=== PATIENT | male | born 1960 | race African-American/Black ===

== ENCOUNTER → 2016-09-08 | Outpatient (CLI) | payer OTHER ==
[2016-06-24 10:58] VITALS: BP 162/82
[~2016-09-08] MED LIST: AMIO200T2 PO; ASPI325T4 PO; BENZ100C2 PO; CARV25TA2 PO; CLOP75TA PO; DRON400T PO; FURO40TA4 PO; HYDR12.58 PO; LISI-338 PO; METH10TA6 PO; NICO1PAT2 TD; PANT40TA5 PO; POTA20TA82 PO; PROP80CA3 PO; RANI150C PO; SACU1TAB7 PO
--- NOTE | 2016-09-08 17:16 | RAD ---
Scrotal ultrasound 09/08/2016 Clinical history: Right scrotal pain and swelling. Technique: Using a combination of real-time ultrasound imaging and color-flow and pulse Doppler imaging techniques, duplex evaluation of the scrotal sac and its contents was performed. Multiple images were obtained. Findings: Comparison study is dated 06/05/2016. The right testicle is within normal limits in size and echogenicity. It measures 4.4 x 3.4 x 1.8 cm in longitudinal, transverse, and AP dimensions. The left testicle is enlarged. It measures 5.7 x 4.7 x 3.3 cm in size. A complex cyst is seen within the superior/mid left testicle which measures 4.0 x 4.1 x 3.3 cm in size. This has increased in size significantly since the previous examination where it measured 5 mm in greatest diameter. Normal color flow Doppler imaging to both testicles is seen. No focal abnormality of either epididymal head is seen. There is a large complex right hydrocele which measures 7.2 cm in greatest diameter. This has increased in size since the previous examination. The large left hydrocele seen on the previous study has resolved. This was reportedly drained surgically. Impression: 1. 4.1 cm complex cyst is seen involving the superior/mid left testicle which have increased in size significantly since the previous examination. Its ultrasound appearance is nonspecific but would be concerning for an abscess given its significantly change in size in 3 months. 2. Large right hydrocele which has increased in size since the previous study.
== END | disposition home or self-care (01) ==
LOC: US 15:11
PROVIDERS: ATTEND Urology
DX: N50.811 Right testicular pain (principal); M79.89 Other specified soft tissue disorders
CPT/HCPCS: 76870

== ENCOUNTER → 2016-12-24 | Outpatient (CLI) | payer OTHER ==
[2016-06-24 10:58] VITALS: BP 162/82
[~2016-12-24] MED LIST changes: -ASPI325T4 PO; +ASPI325T8 PO; +BENZ100C15 PO; -BENZ100C2 PO; +METH-364 PO; -METH10TA6 PO
--- NOTE | 2016-12-24 15:11 | CARD ---
APPROVED REPORT EXAM: Two-dimensional and M-mode echocardiogram with Doppler and color Doppler. Other Information Quality : GoodHR: 59bpm Rhythm : PVC's INDICATION Non ischemic cardiomyopathy 2D DIMENSIONS RVDd3.4 (2.9-3.5cm)Left Atrium(2D)6.0 (1.6-4.0cm) IVSd1.6 (0.7-1.1cm)Aortic Root(2D)3.4 (2.0-3.7cm) LVDd5.6 (3.9-5.9cm)LVOT Diameter2.4 (1.8-2.4cm) PWd1.6 (0.7-1.1cm)LVDs5.3 (2.5-4.0cm) FS (%) 5.0 %SV17.0 ml Aortic Valve AoV Peak Joshua.118.0cm/sAoV VTI25.6cm AO Peak GR.5.6mmHgLVOT Peak Joshua.82.2cm/s AO Mean GR.3mmHgAVA (VMAX)3.25cm2 Mitral Valve MV E Otzjchyt27.0cm/sMV DECEL [id number] MV A Dalqwkpx70.3cm/sE/A Ratio0.7 MV A Nfxbopnv862jm Pulmonary Valve PV Peak Suxwfyty32.0cm/s Tricuspid Valve TR P. Sqkrcxzw028at/sTR Peak Gr.32mmHg Pulmonary Vein S1 Hdhexaup68.1cm/sD2 Tjlsanoa22.3cm/s PVa psafgfqk74dyib LEFT VENTRICLE The Left Ventricle is mild to moderately dilated. There is mild concentric left ventricular hypertrop hy. Left ventricle systolic function is severely impaired. The Ejection Fraction is estimated at 25%. There is severe global hypokinesis of the left ventricle. Transmitral Doppler flow pattern is Grade I-abnormal relaxation pattern. No left ventricle thrombus noted on this study. RIGHT VENTRICLE The right ventricle is normal size. There is normal right ventricular wall thickness. The right ventr icular systolic function is normal. There is a pacemaker/defibrillator lead in the right ventricle. ATRIA The left atrium is moderately dilated. The right atrium size is normal. The interatrial septum is int act with no evidence for an atrial septal defect or patent foramen ovale as noted on 2-D or Doppler i gabrielle. AORTIC VALVE The aortic valve is mildly thickened. The aortic valve is trileaflet. Doppler and Color Flow revealed no significant aortic regurgitation. There is no significant aortic valvular stenosis. MITRAL VALVE The mitral valve leaflets are thickened. There is no evidence of mitral valve prolapse. There is no m itral valve stenosis. Doppler and Color Flow revealed mild mitral regurgitation. TRICUSPID VALVE Doppler and Color Flow revealed mild tricuspid regurgitation. The pulmonary artery systolic pressure is estimated at 32 mmHg. PULMONIC VALVE Doppler and Color Flow revealed mild pulmonic valvular regurgitation. There is no pulmonic valvular s tenosis. GREAT VESSELS The aortic root is normal in size. The ascending aorta is normal in size. The pulmonary artery is nor mal. The IVC is normal in size and collapses >50% with inspiration. PERICARDIAL EFFUSION There is no evidence of significant pericardial effusion. Critical Notification Critical Value: No <Conclusion> The Left Ventricle is mild to moderately dilated. Left ventricle systolic function is severely impaired. The Ejection Fraction is estimated at 25%. There is mild concentric left ventricular hypertrophy. There is a pacemaker/defibrillator lead in the right ventricle. There is no significant aortic valvular stenosis. Doppler and Color Flow revealed no significant aortic regurgitation. Doppler and Color Flow revealed mild mitral regurgitation. Doppler and Color Flow revealed mild tricuspid regurgitation. The pulmonary artery systolic pressure is estimated at 32 mmHg.
== END | disposition home or self-care (01) ==
LOC: ECHO 10:59
PROVIDERS: ATTEND Internal Medicine Cardiovascular Disease
DX: I42.9 Cardiomyopathy, unspecified (principal); I08.1 Rheumatic disorders of both mitral and tricuspid valves
CPT/HCPCS: 93306

== ENCOUNTER 2018-03-02 10:00 | Inpatient (IN) | payer OTHER ==
[~2018-03-02] VITALS: Ht 182.9 cm; Wt 104.0 kg
[~2018-03-02 10:00] MED LIST changes: -AMIO200T2 PO; +AMIO200T4 PO; +BENZ-8 PO; -BENZ100C15 PO
[2018-03-02 10:57] LABS: BASO % 1 % (0-3); EOS % 0 % (0-3); HEMATOCRIT 40.8 % (39.0-53.0); HEMOGLOBIN 13.4 g/dL (13.0-17.5); LYMPH # 1.3 x10^3/uL (1.0-4.8); LYMPH % 24 % (24-48); MEAN CORPUSCULAR HEMOGLOBIN 26 pg (25-35); MEAN CORPUSCULAR HGB CONC 33 g/dL (31-37); MEAN CORPUSCULAR VOLUME 79 fL (79-100); MONO # 0.5 x10^3/uL (0.0-1.1); MONO % 9 % (0-9); NEUT # 3.6 x10^3uL (1.8-7.7); NEUT % 67 % (31-73); PLATELET COUNT 193 x10^3/uL (140-400); RED CELL DISTRIBUTION WIDTH 17.1 % (11.5-14.5); WHITE BLOOD COUNT 5.4 x10^3/uL (4.0-11.0)
[2018-03-02 11:11] LABS: CALCIUM 8.5 mg/dL (8.5-10.1); CREATININE 1.2 mg/dL (0.7-1.3); POTASSIUM 3.8 mmol/L (3.5-5.1)
--- NOTE | 2018-03-02 11:11 | PHYS DOC ---
Past Medical History Past Medical History: CAD, CHF, CVA, GERD, Other Additional Past Medical Histor: PACEMAKER Past Surgical History: Hip Replacement, Pacemaker Additional Past Surgical Histo: FEEDING TUBE, Additional Information: 1/2 PACK DAILY Alcohol Use: Occasionally Drug Use: None Adult General Chief Complaint Chief Complaint: FATIGUE HPI HPI Patient is a 57-year-old male who presents to the emergency department for evaluation. He states that he has been having increasing episodes of dizziness on and off for the past month, and has also had some increasing dyspnea on exertion. He denies having any pain, including any chest pain. He does have a history of coronary artery disease, with congestive heart failure, and pacemaker /AICD. He called his extractor operator solvent process's office and was put on Lasix yesterday, but he did not get any better. He went see his primary care provider today, referred him to the emergency department. Exertion seems to worsen his shortness of breath. There are no alleviating factors to his symptoms. Soon after arrival in the emergency department, the patient did have a run on the hall monitor what appeared to be V. tach, although there are questionable pacemaker spikes preceding these tachycardic beats. The patient's pacemaker is made by [email or web address], and an interrogation has been requested. Review of Systems Review of Systems Constitutional: Denies fever or chills. The patient has reported the 12th, weight gain. [] Eyes: Denies change in visual acuity, redness, or eye pain [] HENT: Denies nasal congestion or sore throat [] Respiratory: Denies cough or shortness of breath at rest. Does report some orthopnea. [] Cardiovascular: The patient denies any chest pain, palpitations [] GI: Denies abdominal pain, nausea, vomiting, bloody stools or diarrhea [] : Denies dysuria or hematuria [] Musculoskeletal: Denies back pain or joint pain [] Integument: Denies rash or skin lesions [] Neurologic: Denies headache, focal weakness or sensory changes [] Endocrine: Denies polyuria or polydipsia [] All other systems were reviewed and found to be within normal limits, except as documented in this note. Allergies Allergies Allergies Coded Allergies Type Severity Reaction Last Updated Verified No Known Drug Allergies 06/24/16 No Physical Exam Physical Exam Constitutional: Well developed, well nourished, no acute distress, non-toxic appearance. [] HENT: Normocephalic, atraumatic, bilateral external ears normal, oropharynx moist, no oral exudates, nose normal. [] Eyes: PERRLA, EOMI, conjunctiva normal, no discharge. [] Neck: Normal range of motion, no tenderness, supple, no stridor. [] Cardiovascular:Heart rate regular rhythm, no murmur [] Lungs & Thorax: Bilateral breath sounds clear to auscultation [] Abdomen: Bowel sounds normal, soft, no tenderness, no masses, no pulsatile masses. [] Skin: Warm, dry, no erythema, no rash. [] Back: No tenderness, no CVA tenderness. [] Extremities: No tenderness, no cyanosis, no clubbing, ROM intact, no edema. [] Neurologic: Alert and oriented X 3, normal motor function, normal sensory function, no focal deficits noted. [] Psychologic: Affect normal, judgement normal, mood normal. [] Current Patient Data Vital Signs Vital Signs Date Time Temp Pulse Resp B/P (MAP) Pulse Ox O2 Delivery O2 Flow Rate FiO2 03/02/18 11:10 76 20 150/98 (115) 96 Room Air 03/02/18 10:08 98.5 98.5 Lab Values Laboratory Tests Test 03/02/18 10:32 03/02/18 11:00 White Blood Count 5.4 x10^3/uL (4.0-11.0) Red Blood Count 5.20 x10^6/uL (4.30-5.70) Hemoglobin 13.4 g/dL (13.0-17.5) Hematocrit 40.8 % (39.0-53.0) Mean Corpuscular Volume 79 fL (79-100) Mean Corpuscular Hemoglobin 26 pg (25-35) Mean Corpuscular Hemoglobin Concent 33 g/dL (31-37) Red Cell Distribution Width 17.1 % (11.5-14.5) H Platelet Count 193 x10^3/uL (140-400) Neutrophils (%) (Auto) 67 % (31-73) Lymphocytes (%) (Auto) 24 % (24-48) Monocytes (%) (Auto) 9 % (0-9) Eosinophils (%) (Auto) 0 % (0-3) Basophils (%) (Auto) 1 % (0-3) Neutrophils # (Auto) 3.6 x10^3uL (1.8-7.7) Lymphocytes # (Auto) 1.3 x10^3/uL (1.0-4.8) Monocytes # (Auto) 0.5 x10^3/uL (0.0-1.1) Eosinophils # (Auto) 0.0 x10^3/uL (0.0-0.7) Basophils # (Auto) 0.0 x10^3/uL (0.0-0.2) Prothrombin Time 13.7 SEC (11.7-14.0) Prothrombin Time INR 1.1 (0.8-1.1) D-Dimer (Anai) 0.51 ug/mlFEU (0.00-0.50) H Sodium Level 138 mmol/L (136-145) Potassium Level 3.8 mmol/L (3.5-5.1) Chloride Level 105 mmol/L (98-107) Carbon Dioxide Level 26 mmol/L (21-32) Anion Gap 7 (6-14) Blood Urea Nitrogen 9 mg/dL (8-26) Creatinine 1.2 mg/dL (0.7-1.3) Estimated GFR (Cockcroft-Gault) 75.0 BUN/Creatinine Ratio 8 (6-20) Glucose Level 99 mg/dL (70-99) Calcium Level 8.5 mg/dL (8.5-10.1) Magnesium Level 2.0 mg/dL (1.8-2.4) Total Bilirubin 0.6 mg/dL (0.2-1.0) Aspartate Amino Transferase (AST) 33 U/L (15-37) Alanine Aminotransferase (ALT) 76 U/L (16-63) H Alkaline Phosphatase 99 U/L (46-116) Creatine Kinase 80 U/L (39-308) Creatine Kinase MB (Mass) 0.8 ng/mL (0.0-3.6) Creatine Kinase MB Relative Index 1.0 % (0-4) Troponin I Quantitative 0.038 ng/mL (0.000-0.055) IR-Tcq-A-Type Natriuretic Peptide 2307 pg/mL (0-124) H Total Protein 6.9 g/dL (6.4-8.2) Albumin 3.3 g/dL (3.4-5.0) L Albumin/Globulin Ratio 0.9 (1.0-1.7) L Triglycerides Level 64 mg/dL (0-150) Cholesterol Level 163 mg/dL (0-200) LDL Cholesterol, Calculated 83 mg/dL (0-100) VLDL Cholesterol, Calculated 13 mg/dL (0-40) Non-HDL Cholesterol Calculated 96 mg/dL (0-129) HDL Cholesterol 67 mg/dL (40-60) H Cholesterol/HDL Ratio 2.4 Urine Collection Type Void Urine Color Yellow Urine Clarity Clear Urine pH 7.0 Urine Specific [place] 1.010 Urine Protein Negative mg/dL (NEG-TRACE) Urine Glucose (UA) Negative mg/dL (NEG) Urine Ketones (Stick) Negative mg/dL (NEG) Urine Blood Negative (NEG) Urine Nitrite Negative (NEG) Urine Bilirubin Negative (NEG) Urine Urobilinogen Dipstick 0.2 mg/dL (0.2 mg/dL) Urine Leukocyte Esterase Negative (NEG) Urine RBC 1-2 /HPF (0-2) Urine WBC Occ /HPF (0-4) Urine Squamous Epithelial Cells Occ /LPF Urine Bacteria 0 /HPF (0-FEW) Laboratory Tests 03/02/18 10:32 Laboratory Tests 03/02/18 10:32 EKG EKG [Normal sinus rhythm at a rate of 75 bpm with occasional APCs. Normal axis, right bundle-branch block, without acute ischemic ST/T changes. The patient's right bundle-branch block is new from his most recent EKG from 2016.] Radiology/Procedures Radiology/Procedures [ER physician preliminary review of the patient's outpatient chest x-ray, which has been uploaded to PACS: Cardiomegaly with mild vascular congestion], With some right perihilar prominence. Course & Med Decision Making Course & Med Decision Making Pertinent Labs and Imaging studies reviewed. (See chart for details) [The patient's pacemaker was interrogated. Today's episode appears to have been an episode of pacemaker mediated tachycardia, possibly triggered by a PVC. However, the patient did have an episode on 02/18 of fast ventricular tachycardia lasting a few seconds, his pacemaker was getting ready to shock him , when the patient spontaneously converted in the shock was aborted. The patient also had initial tachycardia dysrhythmia on 02/19.] The patient's condition remained stable at this time. Did discuss the case with the hospitalist will admit the patient for further evaluation, the patient's extractor operator solvent process has been contacted as well. 12:30 PM: The patient's d-dimer is noted to be only slightly elevated. Given the data available at this time I do not believe the patient has a pulmonary embolus and. I discussed the slightly elevated d-dimer but with the patient and the hospitalist expectant management will be undertaken, I do not believe the patient warrants emergent CT imaging at this time. But the patient and hospitalist agreed. Dragon Disclaimer Dragon Disclaimer This electronic medical record was generated, in whole or in part, using a voice recognition dictation system. Departure Departure Impression: Primary Impression: Dyspnea Additional Impressions: Congestive heart failure Arrhythmia Disposition: 09 ADMITTED INPATIENT Admitting Physician: Janeen Pollock Condition: STABLE Referrals: JAN DONOHUE DO (PCP) Problem Qualifiers NANCI OLIVER MD Mar 02, 2018 11:11
[2018-03-02 11:13] LABS: BILIRUBIN,URINE NEGATIVE (NEG); CLARITY,URINE CLEAR; COLOR,URINE YELLOW; NITRITE,URINE NEGATIVE (NEG); PROTEIN,URINE NEGATIVE (NEG-TRACE); UROBILINOGEN,URINE 0.2 mg/dL (0.2 mg/dL)
[2018-03-02 11:13] LABS: ALBUMIN 3.3 g/dL (3.4-5.0); ALBUMIN/GLOBULIN RATIO 0.9 (1.0-1.7); TOTAL BILIRUBIN 0.6 mg/dL (0.2-1.0); TOTAL PROTEIN 6.9 g/dL (6.4-8.2)
[2018-03-02 11:40] LABS: BACTERIA,URINE 0 /HPF (0-FEW); SQUAMOUS EPITHELIAL CELL,UR OCC /LPF; WBC,URINE OCC /HPF (0-4)
[2018-03-02 11:46] LABS: PROTHROMBIN TIME PATIENT 13.7 SEC (11.7-14.0)
--- NOTE | 2018-03-02 12:03 | PDOC2 ---
JANA MILLER INDUSTRIAL HYGIENIST 03/02/18 1203: CARDIAC CONSULT DATE OF CONSULT Date of Consult DATE: 03/02/18 TIME: 11:50 REASON FOR CONSULT Reason for Consult: CHF REFERRING PHYSICIAN Referring Physician: Calin SOURCE Source: Chart review, Patient HISTORY OF PRESENT ILLNESS HISTORY OF PRESENT ILLNESS This is a pleasant 57 yo male admitted for complains of SOA and leg edema and fatigue. 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 He has been having some occasional SOA but this became more pronounced in the last 2 weeks. He has been sleeping in the living room sitting up away from his PANEL BUILDER-D transmitter so it has not download the data for that long. Positive for orthopnea, PND, some wheeze with nonproductive cough. Denies any CP or feeling of palpitations. He has been taking his medications regularly and yesterday he just got started back on lasix 20 mg which he has not taken in a while. Positive for increasing leg edema. No n/v nor diarrhea, no fever or chills. PAST MEDICAL HISTORY Past Medical History Cardiovascular: CHF (nonischemic cardiomyopathy; cardiac arrest with V fib ), HTN, PAFIB Pulmonary: RAKESH CENTRAL NERVOUS SYSTEM: CVA GI: GERD Heme/Onc: No pertinent hx Hepatobiliary: No pertinent hx Psych: Anxiety Musculoskeletal: Osteoarthritis Rheumatologic: No pertinent hx Infectious disease: No pertinent hx ENT: No pertinent hx Renal/: hydrocele Endocrine: hyperthyroidism PAST SURGICAL HISTORY Past Surgical History Biotronik AICD implantation; heart valve surgery as a child; RV lead revision from microdislodgement of RV lead of ICD; feeding tube placement, left hydrocelectomy, hip replacement FAMILY HISTORY Family History noncontributory SOCIAL HISTORY Smoke: Quit ALCOHOL: none Drugs: None ALLERGIES ALLERGIES: Coded Allergies: No Known Drug Allergies (Unverified , 06/24/16) ROS Review of System 14 point ROS evaluated with pertinent positives noted via HPI PHYSICAL EXAM General: Alert, Oriented X3, Cooperative, No acute distress HEENT: Mucous membr. moist/pink Lungs: Other (basilar crackles) Heart: Other (2/6 systolic murmur to LLS border) Abdomen: Soft, No tenderness Extremities: No cyanosis, Other (2-3+ bilateral LE pitting edema) Skin: No breakdown, No significant lesion Neuro: Normal speech, Sensation intact Psych/Mental Status: Mental status NL, Mood NL MUSCULOSKELETAL: Osteoarthritic changes both hands VITALS VITALS Vital Signs Date Time Temp Pulse Resp B/P (MAP) Pulse Ox O2 Delivery O2 Flow Rate FiO2 03/02/18 11:10 76 20 150/98 (115) 96 Room Air 03/02/18 10:08 98.5 98.5 LABS Lab: Laboratory Tests Test 03/02/18 10:32 03/02/18 11:00 White Blood Count 5.4 x10^3/uL (4.0-11.0) Red Blood Count 5.20 x10^6/uL (4.30-5.70) Hemoglobin 13.4 g/dL (13.0-17.5) Hematocrit 40.8 % (39.0-53.0) Mean Corpuscular Volume 79 fL (79-100) Mean Corpuscular Hemoglobin 26 pg (25-35) Mean Corpuscular Hemoglobin Concent 33 g/dL (31-37) Red Cell Distribution Width 17.1 % (11.5-14.5) Platelet Count 193 x10^3/uL (140-400) Neutrophils (%) (Auto) 67 % (31-73) Lymphocytes (%) (Auto) 24 % (24-48) Monocytes (%) (Auto) 9 % (0-9) Eosinophils (%) (Auto) 0 % (0-3) Basophils (%) (Auto) 1 % (0-3) Neutrophils # (Auto) 3.6 x10^3uL (1.8-7.7) Lymphocytes # (Auto) 1.3 x10^3/uL (1.0-4.8) Monocytes # (Auto) 0.5 x10^3/uL (0.0-1.1) Eosinophils # (Auto) 0.0 x10^3/uL (0.0-0.7) Basophils # (Auto) 0.0 x10^3/uL (0.0-0.2) Prothrombin Time 13.7 SEC (11.7-14.0) Prothromb Time International Ratio 1.1 (0.8-1.1) D-Dimer (Anai) ug/mlFEU (0.00-0.50) Sodium Level 138 mmol/L (136-145) Potassium Level 3.8 mmol/L (3.5-5.1) Chloride Level 105 mmol/L (98-107) Carbon Dioxide Level 26 mmol/L (21-32) Anion Gap 7 (6-14) Blood Urea Nitrogen 9 mg/dL (8-26) Creatinine 1.2 mg/dL (0.7-1.3) Estimated GFR (Cockcroft-Gault) 75.0 BUN/Creatinine Ratio 8 (6-20) Glucose Level 99 mg/dL (70-99) Calcium Level 8.5 mg/dL (8.5-10.1) Magnesium Level 2.0 mg/dL (1.8-2.4) Total Bilirubin 0.6 mg/dL (0.2-1.0) Aspartate Amino Transf (AST/SGOT) 33 U/L (15-37) Alanine Aminotransferase (ALT/SGPT) 76 U/L (16-63) Alkaline Phosphatase 99 U/L (46-116) Creatine Kinase 80 U/L (39-308) Creatine Kinase MB (Mass) 0.8 ng/mL (0.0-3.6) Creatine Kinase MB Relative Index 1.0 % (0-4) Troponin I Quantitative 0.038 ng/mL (0.000-0.055) PP-Kcw-Q-Type Natriuretic Peptide 2307 pg/mL (0-124) Total Protein 6.9 g/dL (6.4-8.2) Albumin 3.3 g/dL (3.4-5.0) Albumin/Globulin Ratio 0.9 (1.0-1.7) Urine Collection Type Void Urine Color Yellow Urine Clarity Clear Urine pH 7.0 Urine Specific [place] 1.010 Urine Protein Negative mg/dL (NEG-TRACE) Urine Glucose (UA) Negative mg/dL (NEG) Urine Ketones (Stick) Negative mg/dL (NEG) Urine Blood Negative (NEG) Urine Nitrite Negative (NEG) Urine Bilirubin Negative (NEG) Urine Urobilinogen Dipstick 0.2 mg/dL (0.2 mg/dL) Urine Leukocyte Esterase Negative (NEG) Urine RBC 1-2 /HPF (0-2) Urine WBC Occ /HPF (0-4) Urine Squamous Epithelial Cells Occ /LPF Urine Bacteria 0 /HPF (0-FEW) ECHOCARDIOGRAM ECHOCARDIOGRAM <Conclusion> The Left Ventricle is mild to moderately dilated. Left ventricle systolic function is severely impaired. The Ejection Fraction is estimated at 25%. There is mild concentric left ventricular hypertrophy. There is a pacemaker/defibrillator lead in the right ventricle. There is no significant aortic valvular stenosis. Doppler and Color Flow revealed no significant aortic regurgitation. Doppler and Color Flow revealed mild mitral regurgitation. Doppler and Color Flow revealed mild tricuspid regurgitation. The pulmonary artery systolic pressure is estimated at 32 mmHg. DATE: 12/24/16 1510 ASSESSMENT/PLAN ASSESSMENT/PLAN 1. Acute on chronic systolic CHF: noted with est.13 pound wt gain. 2. Hx of Vfib: possible aborted V fib episode over a week ago, awaiting full interrogation report 3. NICM: last [facility] 2008 4. 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 failed download for about 2 weeks as he has been sleeping away from transmitter. 5. HTN: controlled 6. PAFIB: on multaq. Likely not a candidate for amiodarone due to hx of hyperthyroidism 7. HLP: on lipitor 8. Hx of hyperthyroidism: likely primary. Was on propranolol and tapazole in the past which he has not on anymore. 9. HX of TIA: on plavix Recommendations 1. Lasix therapy. DC HCTZ. 2. Continue entresto, lipitor. Start on ASA. 3. TSH, lipids, Mg, and TTE and CXR 4. Will interrogate device and will note final result for possible adjustment on setting.. Will possibly need to stop multaq, will discuss with primary chip bin conveyor tender. 5. Compliant with FR and diet. Encouraged daily wt. 6. Noted with past hx of RAKESH but no documented use of CPAP. May need to revisit. EDWIN HAIRSTON MD 03/02/18 1512: CARDIAC CONSULT ASSESSMENT/PLAN ASSESSMENT/PLAN Patient seen and examined. Agree with NEEDLE GRADER's assessment and plan. Continue diuresis for acute on chronic systolic heart failure We will obtain records from recent AICD interrogation confirm ventricular fibrillation Continue multaq for rhythm maintenance Thank you for your consultation JANA MILLER APRN Mar 02, 2018 12:03 EDWIN HAIRSTON MD Mar 02, 2018 15:12
[2018-03-02 12:10] LABS: D-DIMER 0.51 ug/mlFEU (0.00-0.50)
--- NOTE | 2018-03-02 12:11 | EKG ---
[facility] [address] [place] [address] Test Date: 2018-03-02 Test Time: 10:23:44 Pat Name: FELIPE MESA Department: Room: Gender: M Train Starter: : [id number] Requested By: NANCI OLIVER Order Number: [id number] Reading MD: Peterson Funez MD Measurements Intervals [place] Rate: 75 P: 59 MS: 194 QRS: 38 QRSD: 154 T: 44 QT: 424 QTc: 476 Interpretive Statements SINUS RHYTHM ATRIAL PREMATURE COMPLEX(ES) RIGHT BUNDLE BRANCH BLOCK Electronically Signed On 03-03-2018 12:23:01 CDT by Peterson Funez MD
[2018-03-02 12:29] LABS: CHOLESTEROL/HDL RATIO 2.4
[2018-03-02] MEDS ORDERED: CALCIUM CARBONATE 500 MG TAB.CHEW PO PRN (12:45)
[2018-03-02] MEDS ORDERED: PROCHLORPERAZINE 25 MG SUPP.RECT. PR PRN (12:45)
[2018-03-02] MEDS ORDERED: IBUPROFEN 400 MG TABLET. PO PRN (12:45)
[2018-03-02] MEDS ORDERED: PROCHLORPERAZINE 10 MG/2 ML VIAL. IV PRN (12:45)
[2018-03-02] MEDS ORDERED: MAGNESIUM HYDROXIDE 2,400 MG/30 ML ORAL.SUSP. PO PRN (12:45)
[2018-03-02] MEDS ORDERED: BISACODYL 10 MG SUPP.RECT. PR PRN (12:45)
[2018-03-02] MEDS ORDERED: ZOLPIDEM 5 MG TABLET. PO PRN (12:45)
[2018-03-02] MEDS ORDERED: MORPHINE SULFATE 2 MG/ML VIAL. IV PRN (12:45)
[2018-03-02] MEDS ORDERED: ONDANSETRON PF 4 MG/2 ML VIAL. IV PRN (12:45)
[2018-03-02] MEDS ORDERED: MAG HYDROX/ALUMINUM HYD/SIMETH 30 ML ORAL.SUSP PO PRN (12:45)
[2018-03-02] MEDS ORDERED: oxyCODONE IR 5 MG TABLET PO PRN (12:45)
[2018-03-02] MEDS ORDERED: ACETAMINOPHEN 325 MG TABLET. PO PRN (12:45)
[2018-03-02 13:09] LABS: FREE T4 1.24 ng/dL (0.76-1.46)
--- NOTE | 2018-03-02 13:10 | PDOC1 ---
History and Physical Date of Admission Date of Admission DATE: 03/02/18 TIME: 13:05 Identification/Chief Complaint Chief Complaint AICD firing few days ago, lightheaded, sent by PCP office Source Source: Caregiver, Chart review, Patient History of Present Illness History of Present Illness Very pleasant 57-year-old -Turkish male with indwelling AICD, was sent by PCP office today about also be the AICD firing few days ago, pacer was interrogated and maybe some V. fib by pacer interrogation. Patient did have some lightheadedness and feeling unwell. He does take Synthroid medications and TSH T3-T4 pending. Labs are otherwise looking good. D-dimer mildly elevated but nontoxic appearing and no documented chest pain. HEnce no CTA needed, .Cardiology has seen, plan for an MPI tomorrow. Okay to have a diet today but nothing by mouth post midnight. PCP is from [facility], Dr. Blanca is his aix architect. He does has extensive cardiac history including A. fib, V. tach tachyarrhythmias, indwelling pacer etc. Smokes, less than a pack a day. No alcohol. Seen at ER, appearing well Cardiovascular: CHF (nonischemic cardiomyopathy; cardiac arrest with V fib ), HTN, AFIB Past Medical History Cardiovascular: CAD, CHF, Other Pulmonary: No pertinent hx CENTRAL NERVOUS SYSTEM: Other GI: GERD Heme/Onc: No pertinent hx Hepatobiliary: No pertinent hx Psych: Anxiety Musculoskeletal: Osteoarthritis Rheumatologic: No pertinent hx Infectious disease: No pertinent hx Renal/: No pertinent hx Endocrine: No pertinent hx Past Surgical History Past Surgical History: Cholecystectomy, Other Family History Family History: High Cholestrol, Hypertension Social History Smoke: <1 pack per day ALCOHOL: none Drugs: None Current Problem List Problem List Problems Medical Problems: (1) Arrhythmia Status: Acute (2) Congestive heart failure Status: Acute (3) Dyspnea Status: Acute Current Medications Current Medications Current Medications Ondansetron HCl (Zofran) 4 mg PRN Q6HRS PRN IV NAUSEA/VOMITING; Start 03/02/18 at 12:45 Prochlorperazine Edisylate (Compazine) 10 mg PRN Q6HRS PRN IV NAUSEA/VOMITING 2ND CHOICE; Start 03/02/18 at 12:45 Prochlorperazine (Compazine) 25 mg PRN Q12HR PRN CT NAUSEA/VOMITING; Start at 12:45 Al Hydroxide/Mg Hydroxide (Mylanta Plus Xs) 30 ml PRN Q3HRS PRN PO HEARTBURN / GAS; Start 03/02/18 at 12:45 Calcium Carbonate/ Glycine (Tums) 500 mg PRN Q3HRS PRN PO UPSET STOMACH; Start 03/02/18 at 12:45 Zolpidem Tartrate (Ambien) 5 mg PRN QHS PRN PO INSOMNIA, MAY REPEAT IN 1HR; Start 03/02/18 at 12:45 Oxycodone HCl (Roxicodone) 5 mg PRN Q3HRS PRN PO MODERATE-SEVERE PAIN; Start at 12:45 Morphine Sulfate (Morphine Sulfate) 1 mg PRN Q1HR PRN IV PAIN; Start 03/02/18 at 12:45 Acetaminophen (Tylenol) 650 mg PRN Q6HRS PRN PO Headaches, Temp > 101.5F; Start 03/02/18 at 12:45 Ibuprofen (Motrin) 400 mg PRN Q6HRS PRN PO MILD PAIN; Start 03/02/18 at 12:45 Docusate Sodium (Colace) 100 mg BID PO ; Start 03/02/18 at 21:00 Magnesium Hydroxide (Milk Of Magnesia) 2,400 mg PRN Q12HR PRN PO CONSTIPATION; Start 03/02/18 at 12:45 Bisacodyl (Dulcolax Supp) 10 [address] CONSTIPATION; Start 03/02/18 at 12:45 Dronedarone (Multaq) 400 mg BID PO ; Start 03/02/18 at 21:00 Furosemide (Lasix) 40 mg DAILY PO ; Start 03/03/18 at 09:00 Hydrochlorothiazide (Microzide) 12.5 mg BID PO ; Start 03/02/18 at 21:00 Methimazole (Tapazole) 60 mg DAILY PO ; Start 03/03/18 at 09:00 Potassium Chloride (Klor-Con) 20 meq DAILYWBKFT PO ; Start 03/03/18 at 08:00 Non-Formulary Medication (Propranolol Hcl ) 120 mg BID PO ; Start 03/02/18 at 21 :00; Status UNV Sacubitril/ Valsartan (Entresto 49 Mg-51 Mg) 1 tab BID PO ; Start 03/02/18 at 21 :00 Active Scripts Active Reported Multaq (Dronedarone Hcl) 400 Mg Tablet 1 Tab PO BID Propranolol Hcl 80 Mg Cap.sa.24h 120 Mg PO BID Methimazole 10 Mg Tablet 60 Mg PO DAILY Hydrochlorothiazide Tablet (Hydrochlorothiazide) 12.5 Mg Tablet 10 Mg PO BID Entresto 49 mg-51 mg Tablet (Sacubitril/Valsartan) 1 Each Tablet 1 Each PO BID Potassium Chloride 20 Meq Tablet.er 20 Meq PO DAILY Last dose given: 9:00 a.m. Next dose due: 06-01-14 9:00 a.m. Furosemide 40 Mg Tablet 40 Mg PO DAILY Last dose given: 9:00 a.m. Next dose due: 06-01-14 9:00 a.m. Allergies Allergies: Coded Allergies: No Known Drug Allergies (Unverified , 06/24/16) ROS Review of System as per HPI. The rest of ROS 14 point negative Physical Exam General: Alert, Oriented X3, Cooperative, No acute distress HEENT: Atraumatic, PERRLA, EOMI Lungs: Clear to auscultation, Normal air movement Heart: S1S2, RRR, no thrills, no rubs, no gallops, no murmurs Cardiovascular: S1, S2 Abdomen: Normal bowel sounds, Soft, No tenderness, No hepatosplenomegaly, No masses Male Genitals Exam: normal genitalia, normal prostate Rectal Exam: not examined PELVIC: Nml ext vulva Extremities: No clubbing, No cyanosis, No edema, Normal pulses, No tenderness/ swelling Skin: No rashes, No breakdown, No significant lesion Neuro: Normal gait, Normal speech, Strength at 5/5 X4 ext, Normal tone, Sensation intact, Cranial nerves 3-12 NL, Reflexes 2+ Psych/Mental Status: Mental status NL, Mood NL Vitals Vitals Vital Signs Date Time Temp Pulse Resp B/P (MAP) Pulse Ox O2 Delivery O2 Flow Rate FiO2 03/02/18 12:10 66 20 136/79 (98) 98 Room Air 03/02/18 10:08 98.5 98.5 Labs Labs Laboratory Tests Test 03/02/18 10:32 03/02/18 11:00 White Blood Count 5.4 x10^3/uL (4.0-11.0) Red Blood Count 5.20 x10^6/uL (4.30-5.70) Hemoglobin 13.4 g/dL (13.0-17.5) Hematocrit 40.8 % (39.0-53.0) Mean Corpuscular Volume 79 fL (79-100) Mean Corpuscular Hemoglobin 26 pg (25-35) Mean Corpuscular Hemoglobin Concent 33 g/dL (31-37) Red Cell Distribution Width 17.1 % (11.5-14.5) Platelet Count 193 x10^3/uL (140-400) Neutrophils (%) (Auto) 67 % (31-73) Lymphocytes (%) (Auto) 24 % (24-48) Monocytes (%) (Auto) 9 % (0-9) Eosinophils (%) (Auto) 0 % (0-3) Basophils (%) (Auto) 1 % (0-3) Neutrophils # (Auto) 3.6 x10^3uL (1.8-7.7) Lymphocytes # (Auto) 1.3 x10^3/uL (1.0-4.8) Monocytes # (Auto) 0.5 x10^3/uL (0.0-1.1) Eosinophils # (Auto) 0.0 x10^3/uL (0.0-0.7) Basophils # (Auto) 0.0 x10^3/uL (0.0-0.2) Prothrombin Time 13.7 SEC (11.7-14.0) Prothromb Time International Ratio 1.1 (0.8-1.1) D-Dimer (Anai) 0.51 ug/mlFEU (0.00-0.50) Sodium Level 138 mmol/L (136-145) Potassium Level 3.8 mmol/L (3.5-5.1) Chloride Level 105 mmol/L (98-107) Carbon Dioxide Level 26 mmol/L (21-32) Anion Gap 7 (6-14) Blood Urea Nitrogen 9 mg/dL (8-26) Creatinine 1.2 mg/dL (0.7-1.3) Estimated GFR (Cockcroft-Gault) 75.0 BUN/Creatinine Ratio 8 (6-20) Glucose Level 99 mg/dL (70-99) Calcium Level 8.5 mg/dL (8.5-10.1) Magnesium Level 2.0 mg/dL (1.8-2.4) Total Bilirubin 0.6 mg/dL (0.2-1.0) Aspartate Amino Transf (AST/SGOT) 33 U/L (15-37) Alanine Aminotransferase (ALT/SGPT) 76 U/L (16-63) Alkaline Phosphatase 99 U/L (46-116) Creatine Kinase 80 U/L (39-308) Creatine Kinase MB (Mass) 0.8 ng/mL (0.0-3.6) Creatine Kinase MB Relative Index 1.0 % (0-4) Troponin I Quantitative 0.038 ng/mL (0.000-0.055) VR-Ddr-T-Type Natriuretic Peptide 2307 pg/mL (0-124) Total Protein 6.9 g/dL (6.4-8.2) Albumin 3.3 g/dL (3.4-5.0) Albumin/Globulin Ratio 0.9 (1.0-1.7) Triglycerides Level 64 mg/dL (0-150) Cholesterol Level 163 mg/dL (0-200) LDL Cholesterol, Calculated 83 mg/dL (0-100) VLDL Cholesterol, Calculated 13 mg/dL (0-40) Non-HDL Cholesterol Calculated 96 mg/dL (0-129) HDL Cholesterol 67 mg/dL (40-60) Cholesterol/HDL Ratio 2.4 Thyroid Stimulating Hormone (TSH) 1.238 uIU/mL (0.358-3.74) Urine Collection Type Void Urine Color Yellow Urine Clarity Clear Urine pH 7.0 Urine Specific [place] 1.010 Urine Protein Negative mg/dL (NEG-TRACE) Urine Glucose (UA) Negative mg/dL (NEG) Urine Ketones (Stick) Negative mg/dL (NEG) Urine Blood Negative (NEG) Urine Nitrite Negative (NEG) Urine Bilirubin Negative (NEG) Urine Urobilinogen Dipstick 0.2 mg/dL (0.2 mg/dL) Urine Leukocyte Esterase Negative (NEG) Urine RBC 1-2 /HPF (0-2) Urine WBC Occ /HPF (0-4) Urine Squamous Epithelial Cells Occ /LPF Urine Bacteria 0 /HPF (0-FEW) Laboratory Tests Test 03/02/18 10:32 03/02/18 11:00 White Blood Count 5.4 x10^3/uL (4.0-11.0) Red Blood Count 5.20 x10^6/uL (4.30-5.70) Hemoglobin 13.4 g/dL (13.0-17.5) Hematocrit 40.8 % (39.0-53.0) Mean Corpuscular Volume 79 fL (79-100) Mean Corpuscular Hemoglobin 26 pg (25-35) Mean Corpuscular Hemoglobin Concent 33 g/dL (31-37) Red Cell Distribution Width 17.1 % (11.5-14.5) Platelet Count 193 x10^3/uL (140-400) Neutrophils (%) (Auto) 67 % (31-73) Lymphocytes (%) (Auto) 24 % (24-48) Monocytes (%) (Auto) 9 % (0-9) Eosinophils (%) (Auto) 0 % (0-3) Basophils (%) (Auto) 1 % (0-3) Neutrophils # (Auto) 3.6 x10^3uL (1.8-7.7) Lymphocytes # (Auto) 1.3 x10^3/uL (1.0-4.8) Monocytes # (Auto) 0.5 x10^3/uL (0.0-1.1) Eosinophils # (Auto) 0.0 x10^3/uL (0.0-0.7) Basophils # (Auto) 0.0 x10^3/uL (0.0-0.2) Prothrombin Time 13.7 SEC (11.7-14.0) Prothromb Time International Ratio 1.1 (0.8-1.1) D-Dimer (Anai) 0.51 ug/mlFEU (0.00-0.50) Sodium Level 138 mmol/L (136-145) Potassium Level 3.8 mmol/L (3.5-5.1) Chloride Level 105 mmol/L (98-107) Carbon Dioxide Level 26 mmol/L (21-32) Anion Gap 7 (6-14) Blood Urea Nitrogen 9 mg/dL (8-26) Creatinine 1.2 mg/dL (0.7-1.3) Estimated GFR (Cockcroft-Gault) 75.0 BUN/Creatinine Ratio 8 (6-20) Glucose Level 99 mg/dL (70-99) Calcium Level 8.5 mg/dL (8.5-10.1) Magnesium Level 2.0 mg/dL (1.8-2.4) Total Bilirubin 0.6 mg/dL (0.2-1.0) Aspartate Amino Transf (AST/SGOT) 33 U/L (15-37) Alanine Aminotransferase (ALT/SGPT) 76 U/L (16-63) Alkaline Phosphatase 99 U/L (46-116) Creatine Kinase 80 U/L (39-308) Creatine Kinase MB (Mass) 0.8 ng/mL (0.0-3.6) Creatine Kinase MB Relative Index 1.0 % (0-4) Troponin I Quantitative 0.038 ng/mL (0.000-0.055) LN-Loj-F-Type Natriuretic Peptide 2307 pg/mL (0-124) Total Protein 6.9 g/dL (6.4-8.2) Albumin 3.3 g/dL (3.4-5.0) Albumin/Globulin Ratio 0.9 (1.0-1.7) Triglycerides Level 64 mg/dL (0-150) Cholesterol Level 163 mg/dL (0-200) LDL Cholesterol, Calculated 83 mg/dL (0-100) VLDL Cholesterol, Calculated 13 mg/dL (0-40) Non-HDL Cholesterol Calculated 96 mg/dL (0-129) HDL Cholesterol 67 mg/dL (40-60) Cholesterol/HDL Ratio 2.4 Thyroid Stimulating Hormone (TSH) 1.238 uIU/mL (0.358-3.74) Urine Collection Type Void Urine Color Yellow Urine Clarity Clear Urine pH 7.0 Urine Specific [place] 1.010 Urine Protein Negative mg/dL (NEG-TRACE) Urine Glucose (UA) Negative mg/dL (NEG) Urine Ketones (Stick) Negative mg/dL (NEG) Urine Blood Negative (NEG) Urine Nitrite Negative (NEG) Urine Bilirubin Negative (NEG) Urine Urobilinogen Dipstick 0.2 mg/dL (0.2 mg/dL) Urine Leukocyte Esterase Negative (NEG) Urine RBC 1-2 /HPF (0-2) Urine WBC Occ /HPF (0-4) Urine Squamous Epithelial Cells Occ /LPF Urine Bacteria 0 /HPF (0-FEW) VTE Prophylaxis Ordered VTE Prophylaxis Devices: Yes VTE Pharmacological Prophylaxi: Yes Assessment/Plan Assessment/Plan AICD firing V. fib by pacer interrogation Lightheadedness, feeling unwell History of PE History of CHF, non ischemic HX cardiac arrest v fib HTN, AFIB PLAn: Admit cardiac floor Follow cards recs I Have reconciled and reviewed home meds okay to cont and allow cardiology to adjust if needed No need for PT OT Okay for diet today but nothing by mouth post midnight in case tests tomorrow Seen at ER BHUPINDER SHULTZ MD Mar 02, 2018 13:09
[2018-03-02] MEDS ORDERED: NICOTINE 21MG PATCH. TD PRN (13:15)
[2018-03-02] MEDS ORDERED: CLOP75TA PO (13:51)
[2018-03-02] MEDS ORDERED: FURO20TA3 PO (13:51)
[2018-03-02] MEDS ORDERED: HYDR-2867 PO (13:51)
[2018-03-02 13:52] VITALS: BP 132/93
[2018-03-02 15:00] VITALS: BP 132/93
[2018-03-02] MEDS: FUROSEMIDE 40 MG/4 ML VIAL. IVP SCH (15:07)
[2018-03-02 16:04] VITALS: BP 132/93
--- NOTE | 2018-03-02 16:47 | CARD ---
MR#: [id number] Date of Study: 03/02/2018 Ordering Physician: JANA MILLER, Referring Physician: BHUPINDER SHULTZ Tech: Chantelle Baker [facility] APPROVED REPORT EXAM: Two-dimensional and M-mode echocardiogram with Doppler and color Doppler. Other Information Quality : Fair INDICATION Non-Ischemic Cardiomyopathy 2D DIMENSIONS RVDd3.2 (2.9-3.5cm)Left Atrium(2D)5.2 (1.6-4.0cm) IVSd1.7 (0.7-1.1cm)Aortic Root(2D)3.5 (2.0-3.7cm) LVDd5.8 (3.9-5.9cm)LVOT Diameter2.4 (1.8-2.4cm) PWd1.7 (0.7-1.1cm)LVDs5.4 (2.5-4.0cm) FS (%) 6.9 %SV25.1 ml LVEF(%)15.1 (>50%) Aortic Valve AoV Peak Joshua.106.7cm/sAoV VTI20.2cm AO Peak GR.4.6mmHgLVOT Peak Joshua.86.8cm/s LVOT VTI 15.78cmAO Mean GR.3mmHg MAGALIS (VMAX)3.05dz5XLQ (VTI)3.66cm2 Mitral Valve MV E Petbfmxn34.8cm/sMV DECEL RIBP378ao MV A Ijedxszv71.4cm/sMV KNC23jf E/A Ratio3.6MVA (PHT)5.27cm2 TDI E/Medial E'28.7 Tricuspid Valve TR P. Uirhuqpw602mu/sRAP EYSAULHF0myNz TR Peak Gr.19npEeVYWK80yuCs Pulmonary Vein S1 Qnscfxwd10.3cm/sD2 Ovzzcrcp23.7cm/s LEFT VENTRICLE The left ventricle is normal size. There is moderate concentric left ventricular hypertrophy. Left ve ntricle systolic function is severely impaired. The Ejection Fraction is 25%. There is severe global hypokinesis of the left ventricle. Transmitral Doppler flow pattern is restrictive diastolic dysfunct ion. RIGHT VENTRICLE The right ventricle is normal size. The right ventricular systolic function is normal. There is a pac emaker lead in the right ventricle. ATRIA The left atrium is moderately dilated. The right atrium is mildly dilated. A pacemaker is seen in the right atrium consistent with history. The interatrial septum is intact with no evidence for an atria l septal defect or patent foramen ovale as noted on 2-D or Doppler imaging. AORTIC VALVE The aortic valve is calcified but opens well. Doppler and Color Flow revealed trace aortic regurgitat ion. There is no significant aortic valvular stenosis. MITRAL VALVE The mitral valve is calcified but opens well. There is no evidence of mitral valve prolapse. There is no mitral valve stenosis. Doppler and Color-flow revealed trace mitral regurgitation. TRICUSPID VALVE The tricuspid valve is normal in structure and function. Doppler and Color Flow revealed mild tricusp id regurgitation. There is moderate pulmonary hypertension. The PA pressure was estimated at 53 mmHg. There is no tricuspid valve stenosis. PULMONIC VALVE The pulmonic valve is not well visualized. Doppler and Color Flow revealed mild pulmonic valvular reg urgitation. There is no pulmonic valvular stenosis. GREAT VESSELS The aortic root is normal in size. The ascending aorta is normal in size. The IVC is normal in size a nd collapses >50% with inspiration. PERICARDIAL EFFUSION There is no evidence of significant pericardial effusion. Critical Notification Critical Value: No <Conclusion> Left ventricle systolic function is severely impaired. The Ejection Fraction is 25%. There is severe global hypokinesis of the left ventricle. Transmitral Doppler flow pattern is restrictive diastolic dysfunction. There is a pacemaker lead in the right ventricle. Doppler and Color Flow revealed mild tricuspid regurgitation. There is moderate pulmonary hypertensio n. The PA pressure was estimated at 53 mmHg. Signed by : Peterson Funez, Electronically Approved : 03/02/2018 16:46:30
[2018-03-02 19:25] VITALS: BP 134/86
[2018-03-02] MEDS: DOCUSATE SODIUM 100 MG CAPSULE. PO SCH (20:01)
[2018-03-02] MEDS ORDERED: PROPRANOLOL HCL 120 MG PO SCH (21:00)
[2018-03-02] MEDS ORDERED: hydroCHLOROthiazide 12.5 MG CAPSULE PO SCH (21:00)
[2018-03-02 21:48] VITALS: BP 129/75
[2018-03-02] MEDS: SACUBITRIL/VALSARTAN 49/51MG TABLET. PO SCH (21:49)
[2018-03-02] MEDS: DRONEDARONE HCL 400 MG TABLET PO SCH (21:50)
[2018-03-02 23:00] VITALS: BP 140/84
[2018-03-03 03:30] VITALS: BP 144/96
[2018-03-03 07:00] VITALS: BP 139/93
[2018-03-03 08:12] LABS: BASO % 0 % (0-3); EOS # 0.1 x10^3/uL (0.0-0.7); EOS % 1 % (0-3); HEMATOCRIT 39.2 % (39.0-53.0); HEMOGLOBIN 12.7 g/dL (13.0-17.5); LYMPH # 1.4 x10^3/uL (1.0-4.8); LYMPH % 26 % (24-48); MEAN CORPUSCULAR HEMOGLOBIN 25 pg (25-35); MEAN CORPUSCULAR HGB CONC 32 g/dL (31-37); MEAN CORPUSCULAR VOLUME 78 fL (79-100); MONO # 0.6 x10^3/uL (0.0-1.1); MONO % 10 % (0-9); NEUT # 3.4 x10^3uL (1.8-7.7); NEUT % 63 % (31-73); PLATELET COUNT 180 x10^3/uL (140-400); RED BLOOD COUNT 5.01 x10^6/uL (4.30-5.70); RED CELL DISTRIBUTION WIDTH 17.3 % (11.5-14.5); WHITE BLOOD COUNT 5.5 x10^3/uL (4.0-11.0)
[2018-03-03 08:36] LABS: CALCIUM 8.2 mg/dL (8.5-10.1); CREATININE 1.3 mg/dL (0.7-1.3); GFR 68.4
[2018-03-03] MEDS ORDERED: FUROSEMIDE 40 MG TABLET. PO SCH (09:00)
[2018-03-03] MEDS: DOCUSATE SODIUM 100 MG CAPSULE. PO SCH ×2 (09:00→20:18)
[2018-03-03] MEDS ORDERED: methIMAzole 10 MG TABLET PO SCH (09:00)
[2018-03-03] MEDS: SACUBITRIL/VALSARTAN 49/51MG TABLET. PO SCH ×2 (09:23→20:18)
[2018-03-03] MEDS: DRONEDARONE HCL 400 MG TABLET PO SCH ×2 (09:24→20:18)
[2018-03-03] MEDS: ASPIRIN ENTERIC COATED 81 MG TABLET.DR. PO SCH (09:24)
[2018-03-03] MEDS: FUROSEMIDE 40 MG/4 ML VIAL. IVP SCH (09:24)
[2018-03-03] MEDS: POTASSIUM CHLORIDE 20 MEQ TABLET.ER. PO SCH (09:31)
[2018-03-03 11:00] VITALS: BP 136/86
--- NOTE | 2018-03-03 11:58 | PDOC ---
JANA MILLER CUSTOMER SUPPORT ANALYST 03/03/18 1158: CARDIO Progress Notes Date and Time Date of Service 03/03/2018 Time of Evaluation 1140 Subjective Subjective: No Chest Pain, No shortness of breath, No Palpitations Vitals Vitals Vital Signs Date Time Temp Pulse Resp B/P (MAP) Pulse Ox O2 Delivery O2 Flow Rate FiO2 03/03/18 09:24 74 139/93 03/03/18 08:00 Room Air 03/03/18 07:00 97.8 16 99 97.8 Weight Weight [ ] Input and Output Intake and Output Intake and Output 03/03/18 07:00 Intake Total 200 ml Output Total 1600 ml Balance -1400 ml Intake Oral 200 ml Output Urine Total 1600 ml Laboratory Labs Laboratory Tests Test 03/03/18 07:00 White Blood Count 5.5 x10^3/uL (4.0-11.0) Red Blood Count 5.01 x10^6/uL (4.30-5.70) Hemoglobin 12.7 g/dL (13.0-17.5) Hematocrit 39.2 % (39.0-53.0) Mean Corpuscular Volume 78 fL (79-100) Mean Corpuscular Hemoglobin 25 pg (25-35) Mean Corpuscular Hemoglobin Concent 32 g/dL (31-37) Red Cell Distribution Width 17.3 % (11.5-14.5) Platelet Count 180 x10^3/uL (140-400) Neutrophils (%) (Auto) 63 % (31-73) Lymphocytes (%) (Auto) 26 % (24-48) Monocytes (%) (Auto) 10 % (0-9) Eosinophils (%) (Auto) 1 % (0-3) Basophils (%) (Auto) 0 % (0-3) Neutrophils # (Auto) 3.4 x10^3uL (1.8-7.7) Lymphocytes # (Auto) 1.4 x10^3/uL (1.0-4.8) Monocytes # (Auto) 0.6 x10^3/uL (0.0-1.1) Eosinophils # (Auto) 0.1 x10^3/uL (0.0-0.7) Basophils # (Auto) 0.0 x10^3/uL (0.0-0.2) Sodium Level 141 mmol/L (136-145) Potassium Level 4.0 mmol/L (3.5-5.1) Chloride Level 106 mmol/L (98-107) Carbon Dioxide Level 29 mmol/L (21-32) Anion Gap 6 (6-14) Blood Urea Nitrogen 11 mg/dL (8-26) Creatinine 1.3 mg/dL (0.7-1.3) Estimated GFR (Cockcroft-Gault) 68.4 Glucose Level 94 mg/dL (70-99) Calcium Level 8.2 mg/dL (8.5-10.1) Magnesium Level 2.1 mg/dL (1.8-2.4) Physical Exam HEENT: Neck Supple W Full Motion Chest: Symmetric LUNGS: Clear to Auscultation Heart: S1S2, RRR (SR with occasional PVCs) Abdomen: Soft N/T Extremities: No Calf Tenderness, Other (2+ bilateral LE pitting edema) Neurology: alert, oriented, follow commands Assessment Assessment 1. Acute on chronic systolic CHF: improved 2. Hx of Vfib: Vfib episode 02/18/2018 which spontaneously resolved before treatment delivery. 3. NICM: last [facility] 2008. EF remains at 25% 4. AICD in situ: [employer]. failed download for about 2 weeks as he has been sleeping away from transmitter. 5. HTN: controlled 6. PAFIB: on multaq. Intolerance to amiodarone in the past. 7. HLP: on lipitor 8. Hx of hyperthyroidism: likely primary. Was on propranolol and tapazole in the past which he is not on anymore. 9. HX of TIA: on plavix 10. Arrhythmias: noted with PMTs rate related. Baseline rate changed to 60 from 40. Thoracic impedance suggest fluid overload. Recommendations 1. Lasix therapy. 2. Continue entresto, lipitor. ASA. Continue Multaq. 3. Remote ischemic w/u in light of arrhythmia events, will proceed with MPI tomorrow and rule out any underlying ischemic etiology 4. Reinforced home BP monitoring, diet and FR compliance and daily wt. 5. Noted with past hx of RAKESH but no documented use of CPAP. May need to revisit. EDWIN HAIRSTON MD 03/04/18 0735: CARDIO Progress Notes Assessment Assessment Patient seen and examined 03/03/18 (late entry). Agree with LOAN CLOSER's assessment and plan. Acute on chronic systolic heart failure better compensated Plan for Lexiscan nuclear stress test tomorrow to rule out ischemia as a cause of ventricular fibrillation noted on device interrogation Continue current medical regimen JANA MILLER APRN Mar 03, 2018 11:58 EDWIN HAIRSTON MD Mar 04, 2018 07:35
--- NOTE | 2018-03-03 13:59 | PDOC ---
PROGRESS NOTES Chief Complaint Chief Complaint states that he has been having increasing episodes of dizziness on and off for the past month, and has also had some increasing dyspnea on exertion. denies having any pain, including any chest pain. He does have a history of coronary artery disease, with congestive heart failure, and pacemaker/AICD. History of Present Illness History of Present Illness Assessment/Plan AICD firing V. fib by pacer interrogation Lightheadedness, feeling unwell History of PE History of CHF, non ischemic HX cardiac arrest v fib HTN, AFIB hx of RAKESH but no documented use of CPAP. obesity advanced tooth loss PLAn: tele cardiac floor cardiology for stress test No need for PT OT stressed low salt intake, wt loss Vitals Vitals Vital Signs Date Time Temp Pulse Resp B/P (MAP) Pulse Ox O2 Delivery O2 Flow Rate FiO2 03/03/18 11:00 97.8 76 16 136/86 (103) 98 Room Air 97.8 Physical Exam General: Alert, Oriented X3, Cooperative, No acute distress Heart: Regular rate, Other (2/6 systolic murmur to LLS border) Lungs: Clear Abdomen: Normal bowel sounds, Soft, No tenderness Extremities: No cyanosis, Other (2-3+ bilateral LE pitting edema) Skin: No breakdown, No significant lesion Labs LABS Laboratory Tests Test 03/03/18 07:00 White Blood Count 5.5 x10^3/uL (4.0-11.0) Red Blood Count 5.01 x10^6/uL (4.30-5.70) Hemoglobin 12.7 g/dL (13.0-17.5) Hematocrit 39.2 % (39.0-53.0) Mean Corpuscular Volume 78 fL (79-100) Mean Corpuscular Hemoglobin 25 pg (25-35) Mean Corpuscular Hemoglobin Concent 32 g/dL (31-37) Red Cell Distribution Width 17.3 % (11.5-14.5) Platelet Count 180 x10^3/uL (140-400) Neutrophils (%) (Auto) 63 % (31-73) Lymphocytes (%) (Auto) 26 % (24-48) Monocytes (%) (Auto) 10 % (0-9) Eosinophils (%) (Auto) 1 % (0-3) Basophils (%) (Auto) 0 % (0-3) Neutrophils # (Auto) 3.4 x10^3uL (1.8-7.7) Lymphocytes # (Auto) 1.4 x10^3/uL (1.0-4.8) Monocytes # (Auto) 0.6 x10^3/uL (0.0-1.1) Eosinophils # (Auto) 0.1 x10^3/uL (0.0-0.7) Basophils # (Auto) 0.0 x10^3/uL (0.0-0.2) Sodium Level 141 mmol/L (136-145) Potassium Level 4.0 mmol/L (3.5-5.1) Chloride Level 106 mmol/L (98-107) Carbon Dioxide Level 29 mmol/L (21-32) Anion Gap 6 (6-14) Blood Urea Nitrogen 11 mg/dL (8-26) Creatinine 1.3 mg/dL (0.7-1.3) Estimated GFR (Cockcroft-Gault) 68.4 Glucose Level 94 mg/dL (70-99) Calcium Level 8.2 mg/dL (8.5-10.1) Magnesium Level 2.1 mg/dL (1.8-2.4) Assessment and Plan Assessmemt and Plan Problems Medical Problems: (1) Arrhythmia Status: Acute (2) Congestive heart failure Status: Acute (3) Dyspnea Status: Acute Comment Review of Relevant I have reviewed the following items tiffany (where applicable) has been applied. Labs Laboratory Tests Test 03/02/18 10:32 03/02/18 11:00 03/03/18 07:00 White Blood Count 5.4 x10^3/uL (4.0-11.0) 5.5 x10^3/uL (4.0-11.0) Red Blood Count 5.20 x10^6/uL (4.30-5.70) 5.01 x10^6/uL (4.30-5.70) Hemoglobin 13.4 g/dL (13.0-17.5) 12.7 g/dL (13.0-17.5) Hematocrit 40.8 % (39.0-53.0) 39.2 % (39.0-53.0) Mean Corpuscular Volume 79 fL (79-100) 78 fL (79-100) Mean Corpuscular Hemoglobin 26 pg (25-35) 25 pg (25-35) Mean Corpuscular Hemoglobin Concent 33 g/dL (31-37) 32 g/dL (31-37) Red Cell Distribution Width 17.1 % (11.5-14.5) 17.3 % (11.5-14.5) Platelet Count 193 x10^3/uL (140-400) 180 x10^3/uL (140-400) Neutrophils (%) (Auto) 67 % (31-73) 63 % (31-73) Lymphocytes (%) (Auto) 24 % (24-48) 26 % (24-48) Monocytes (%) (Auto) 9 % (0-9) 10 % (0-9) Eosinophils (%) (Auto) 0 % (0-3) 1 % (0-3) Basophils (%) (Auto) 1 % (0-3) 0 % (0-3) Neutrophils # (Auto) 3.6 x10^3uL (1.8-7.7) 3.4 x10^3uL (1.8-7.7) Lymphocytes # (Auto) 1.3 x10^3/uL (1.0-4.8) 1.4 x10^3/uL (1.0-4.8) Monocytes # (Auto) 0.5 x10^3/uL (0.0-1.1) 0.6 x10^3/uL (0.0-1.1) Eosinophils # (Auto) 0.0 x10^3/uL (0.0-0.7) 0.1 x10^3/uL (0.0-0.7) Basophils # (Auto) 0.0 x10^3/uL (0.0-0.2) 0.0 x10^3/uL (0.0-0.2) Prothrombin Time 13.7 SEC (11.7-14.0) Prothromb Time International Ratio 1.1 (0.8-1.1) D-Dimer (Anai) 0.51 ug/mlFEU (0.00-0.50) Sodium Level 138 mmol/L (136-145) 141 mmol/L (136-145) Potassium Level 3.8 mmol/L (3.5-5.1) 4.0 mmol/L (3.5-5.1) Chloride Level 105 mmol/L (98-107) 106 mmol/L (98-107) Carbon Dioxide Level 26 mmol/L (21-32) 29 mmol/L (21-32) Anion Gap 7 (6-14) 6 (6-14) Blood Urea Nitrogen 9 mg/dL (8-26) 11 mg/dL (8-26) Creatinine 1.2 mg/dL (0.7-1.3) 1.3 mg/dL (0.7-1.3) Estimated GFR (Cockcroft-Gault) 75.0 68.4 BUN/Creatinine Ratio 8 (6-20) Glucose Level 99 mg/dL (70-99) 94 mg/dL (70-99) Calcium Level 8.5 mg/dL (8.5-10.1) 8.2 mg/dL (8.5-10.1) Magnesium Level 2.0 mg/dL (1.8-2.4) 2.1 mg/dL (1.8-2.4) Total Bilirubin 0.6 mg/dL (0.2-1.0) Aspartate Amino Transf (AST/SGOT) 33 U/L (15-37) Alanine Aminotransferase (ALT/SGPT) 76 U/L (16-63) Alkaline Phosphatase 99 U/L (46-116) Creatine Kinase 80 U/L (39-308) Creatine Kinase MB (Mass) 0.8 ng/mL (0.0-3.6) Creatine Kinase MB Relative Index 1.0 % (0-4) Troponin I Quantitative 0.038 ng/mL (0.000-0.055) SC-Okg-J-Type Natriuretic Peptide 2307 pg/mL (0-124) Total Protein 6.9 g/dL (6.4-8.2) Albumin 3.3 g/dL (3.4-5.0) Albumin/Globulin Ratio 0.9 (1.0-1.7) Triglycerides Level 64 mg/dL (0-150) Cholesterol Level 163 mg/dL (0-200) LDL Cholesterol, Calculated 83 mg/dL (0-100) VLDL Cholesterol, Calculated 13 mg/dL (0-40) Non-HDL Cholesterol Calculated 96 mg/dL (0-129) HDL Cholesterol 67 mg/dL (40-60) Cholesterol/HDL Ratio 2.4 Thyroid Stimulating Hormone (TSH) 1.238 uIU/mL (0.358-3.74) Free Thyroxine 1.24 ng/dL (0.76-1.46) Free Triiodothyronine (T3) pg/mL 2.58 pg/mL (2.18-3.98) Urine Collection Type Void Urine Color Yellow Urine Clarity Clear Urine pH 7.0 Urine Specific [place] 1.010 Urine Protein Negative mg/dL (NEG-TRACE) Urine Glucose (UA) Negative mg/dL (NEG) Urine Ketones (Stick) Negative mg/dL (NEG) Urine Blood Negative (NEG) Urine Nitrite Negative (NEG) Urine Bilirubin Negative (NEG) Urine Urobilinogen Dipstick 0.2 mg/dL (0.2 mg/dL) Urine Leukocyte Esterase Negative (NEG) Urine RBC 1-2 /HPF (0-2) Urine WBC Occ /HPF (0-4) Urine Squamous Epithelial Cells Occ /LPF Urine Bacteria 0 /HPF (0-FEW) Laboratory Tests Test 03/03/18 07:00 White Blood Count 5.5 x10^3/uL (4.0-11.0) Red Blood Count 5.01 x10^6/uL (4.30-5.70) Hemoglobin 12.7 g/dL (13.0-17.5) Hematocrit 39.2 % (39.0-53.0) Mean Corpuscular Volume 78 fL (79-100) Mean Corpuscular Hemoglobin 25 pg (25-35) Mean Corpuscular Hemoglobin Concent 32 g/dL (31-37) Red Cell Distribution Width 17.3 % (11.5-14.5) Platelet Count 180 x10^3/uL (140-400) Neutrophils (%) (Auto) 63 % (31-73) Lymphocytes (%) (Auto) 26 % (24-48) Monocytes (%) (Auto) 10 % (0-9) Eosinophils (%) (Auto) 1 % (0-3) Basophils (%) (Auto) 0 % (0-3) Neutrophils # (Auto) 3.4 x10^3uL (1.8-7.7) Lymphocytes # (Auto) 1.4 x10^3/uL (1.0-4.8) Monocytes # (Auto) 0.6 x10^3/uL (0.0-1.1) Eosinophils # (Auto) 0.1 x10^3/uL (0.0-0.7) Basophils # (Auto) 0.0 x10^3/uL (0.0-0.2) Sodium Level 141 mmol/L (136-145) Potassium Level 4.0 mmol/L (3.5-5.1) Chloride Level 106 mmol/L (98-107) Carbon Dioxide Level 29 mmol/L (21-32) Anion Gap 6 (6-14) Blood Urea Nitrogen 11 mg/dL (8-26) Creatinine 1.3 mg/dL (0.7-1.3) Estimated GFR (Cockcroft-Gault) 68.4 Glucose Level 94 mg/dL (70-99) Calcium Level 8.2 mg/dL (8.5-10.1) Magnesium Level 2.1 mg/dL (1.8-2.4) Medications Current Medications Ondansetron HCl (Zofran) 4 mg PRN Q6HRS PRN IV NAUSEA/VOMITING 1ST CHOICE; Start 03/02/18 at 12:45 Prochlorperazine Edisylate (Compazine) 10 mg PRN Q6HRS PRN IV NAUSEA/VOMITING 2ND CHOICE; Start 03/02/18 at 12:45 Prochlorperazine (Compazine) 25 mg PRN Q12HR PRN [place] NAUSEA/VOMITING; Start at 12:45 Al Hydroxide/Mg Hydroxide (Mylanta Plus Xs) 30 ml PRN Q3HRS PRN PO HEARTBURN / GAS; Start 03/02/18 at 12:45 Calcium Carbonate/ Glycine (Tums) 500 mg PRN Q3HRS PRN PO UPSET STOMACH; Start 03/02/18 at 12:45 Zolpidem Tartrate (Ambien) 5 mg PRN QHS PRN PO INSOMNIA, MAY REPEAT IN 1HR; Start 03/02/18 at 12:45 Oxycodone HCl (Roxicodone) 5 mg PRN Q3HRS PRN PO MODERATE-SEVERE PAIN; Start at 12:45 Morphine Sulfate (Morphine Sulfate) 1 mg PRN Q1HR PRN IV PAIN; Start 03/02/18 at 12:45 Acetaminophen (Tylenol) 650 mg PRN Q6HRS PRN PO Headaches, Temp > 101.5F; Start 03/02/18 at 12:45 Ibuprofen (Motrin) 400 mg PRN Q6HRS PRN PO MILD PAIN; Start 03/02/18 at 12:45 Docusate Sodium (Colace) 100 mg BID PO ; Start 03/02/18 at 21:00 Magnesium Hydroxide (Milk Of Magnesia) 2,400 mg PRN Q12HR PRN PO CONSTIPATION; Start 03/02/18 at 12:45 Bisacodyl (Dulcolax Supp) 10 mg PRN DAILY PRN [place] CONSTIPATION; Start 03/02/18 at 12:45 Dronedarone (Multaq) 400 mg BID PO Last administered on 03/03/18at 09:24; Start 03/02/18 at 21:00 Furosemide (Lasix) 40 mg DAILY PO ; Start 03/03/18 at 09:00; Stop 03/03/18 at 09 :00; Status DC Hydrochlorothiazide (Microzide) 12.5 mg BID PO ; Start 03/02/18 at 21:00; Stop 03/02/18 at 21:00; Status DC Methimazole (Tapazole) 60 mg DAILY PO ; Start 03/03/18 at 09:00; Stop 03/03/18 at 09:00; Status DC Potassium Chloride (Klor-Con) 20 meq DAILYWBKFT PO Last administered on at 09:31; Start 03/03/18 at 08:00 Non-Formulary Medication (Propranolol Hcl ) 120 mg BID PO ; Start 03/02/18 at 21 :00; Stop 03/02/18 at 21:00; Status DC Sacubitril/ Valsartan (Entresto 49 Mg-51 Mg) 1 tab BID PO Last administered on 03/03/18at 09:23; Start 03/02/18 at 21:00 Nicotine (Nicoderm Cq 21mg) 1 patch PRN DAILY PRN TD SMOKING CESSATION; Start 03/02/18 at 13:15 Furosemide (Lasix) 40 mg DAILY IVP Last administered on 03/03/18at 09:24; Start 03/02/18 at 13:15 Aspirin (Ecotrin) 81 mg DAILYWBKFT PO Last administered on 03/03/18at 09:24; Start 03/03/18 at 08:00 Active Scripts Active Reported Hydralazine Hcl 10 Mg Tablet 1 Tab PO BID Furosemide 20 Mg Tablet 20 Mg PO DAILY Clopidogrel (Clopidogrel Bisulfate) 75 Mg Tablet 75 Mg PO DAILY Multaq (Dronedarone Hcl) 400 Mg Tablet 1 Tab PO BID Propranolol Hcl 80 Mg Cap.sa.24h 120 Mg PO BID Methimazole 10 Mg Tablet 60 Mg PO DAILY Hydrochlorothiazide Tablet (Hydrochlorothiazide) 12.5 Mg Tablet 10 Mg PO BID Entresto 49 mg-51 mg Tablet (Sacubitril/Valsartan) 1 Each Tablet 1 Each PO BID Potassium Chloride 20 Meq Tablet.er 20 Meq PO DAILY Last dose given: 9:00 a.m. Next dose due: 06-01-14 9:00 a.m. Furosemide 40 Mg Tablet 40 Mg PO DAILY Last dose given: 9:00 a.m. Next dose due: 06-01-14 9:00 a.m. Vitals/I & O Vital Sign - Last 24 Hours 03/02/18 03/02/18 03/02/18 03/02/18 15:00 15:49 16:04 19:25 Temp 97.9 97.9 98.3 97.9 97.9 98.3 Pulse 75 75 73 Resp 18 B/P (MAP) 132/93 (106) 132/93 (106) 134/86 (102) Pulse Ox 99 99 99 O2 Delivery Room Air Room Air Room Air 03/02/18 03/02/18 03/02/18 03/02/18 20:00 21:48 21:49 21:50 Pulse 70 70 B/P (MAP) 129/75 (93) 129/75 129/75 O2 Delivery Room Air 03/02/18 03/03/18 03/03/18 03/03/18 23:00 03:30 07:00 08:00 Temp 98.2 99.1 97.8 98.2 99.1 97.8 Pulse 71 67 74 Resp 20 14 16 B/P (MAP) 140/84 (102) 144/96 (112) 139/93 (108) Pulse Ox 97 98 99 O2 Delivery Room Air Room Air Room Air Room Air 03/03/18 03/03/18 03/03/18 09:23 09:24 11:00 Temp 97.8 97.8 Pulse 74 74 76 Resp 16 B/P (MAP) 139/93 139/93 136/86 (103) Pulse Ox 98 O2 Delivery Room Air Intake and Output 03/02/18 03/02/18 03/03/18 15:00 23:00 07:00 Intake Total 200 ml Output Total 1400 ml 200 ml Balance -1400 ml 0 ml TONY FRANCISCO MD Mar 03, 2018 13:59
[2018-03-03 15:38] VITALS: BP 106/77
[2018-03-03 20:16] VITALS: BP 125/75
[2018-03-03 22:32] VITALS: BP 116/77
[2018-03-04 03:20] VITALS: BP 125/80
[2018-03-04 05:48] LABS: BASO % 1 % (0-3); EOS # 0.1 x10^3/uL (0.0-0.7); EOS % 1 % (0-3); HEMATOCRIT 39.3 % (39.0-53.0); HEMOGLOBIN 12.7 g/dL (13.0-17.5); LYMPH # 1.5 x10^3/uL (1.0-4.8); LYMPH % 28 % (24-48); MEAN CORPUSCULAR HEMOGLOBIN 25 pg (25-35); MEAN CORPUSCULAR HGB CONC 32 g/dL (31-37); MEAN CORPUSCULAR VOLUME 78 fL (79-100); MONO # 0.5 x10^3/uL (0.0-1.1); MONO % 10 % (0-9); NEUT # 3.2 x10^3uL (1.8-7.7); NEUT % 60 % (31-73); PLATELET COUNT 181 x10^3/uL (140-400); RED BLOOD COUNT 5.01 x10^6/uL (4.30-5.70); RED CELL DISTRIBUTION WIDTH 17.4 % (11.5-14.5); WHITE BLOOD COUNT 5.3 x10^3/uL (4.0-11.0)
[2018-03-04 06:03] LABS: ALBUMIN/GLOBULIN RATIO 0.8 (1.0-1.7); CALCIUM 8.5 mg/dL (8.5-10.1); CREATININE 1.2 mg/dL (0.7-1.3); POTASSIUM 4.6 mmol/L (3.5-5.1); TOTAL BILIRUBIN 0.5 mg/dL (0.2-1.0); TOTAL PROTEIN 6.7 g/dL (6.4-8.2)
[2018-03-04 07:00] VITALS: BP 122/85
[2018-03-04] MEDS ORDERED: REGADENOSON 0.4 MG/5 ML DISP.SYRIN. IV ONE ×3 (08:30→10:52)
[2018-03-04] MEDS: SACUBITRIL/VALSARTAN 49/51MG TABLET. PO SCH ×2 (08:56→20:08)
[2018-03-04] MEDS: ASPIRIN ENTERIC COATED 81 MG TABLET.DR. PO SCH (08:56)
[2018-03-04] MEDS: DRONEDARONE HCL 400 MG TABLET PO SCH ×2 (08:56→20:09)
[2018-03-04] MEDS: DOCUSATE SODIUM 100 MG CAPSULE. PO SCH ×3 (09:00→20:11)
--- NOTE | 2018-03-04 09:11 | PDOC ---
PROGRESS NOTES Chief Complaint Chief Complaint states that he has been having increasing episodes of dizziness on and off for the past month, and has also had some increasing dyspnea on exertion. now better denies having any pain, including any chest pain. He does have a history of coronary artery disease, with congestive heart failure, and pacemaker/AICD. History of Present Illness History of Present Illness Assessment/Plan AICD firing V. fib by pacer interrogation Lightheadedness, feeling unwell, resolved History of PE History of CHF, non ischemic HX cardiac arrest v fib HTN, AFIB hx of RAKESH but no documented use of CPAP. obesity advanced tooth loss PLAn: tele cardiac floor cardiology for stress test today, home later if ok No need for PT OT stressed low salt intake, wt loss Vitals Vitals Vital Signs Date Time Temp Pulse Resp B/P (MAP) Pulse Ox O2 Delivery O2 Flow Rate FiO2 03/04/18 08:56 67 122/85 03/04/18 07:00 97.9 18 98 Room Air 97.9 Physical Exam General: Alert, Oriented X3, Cooperative, No acute distress Heart: Regular rate, Other (2/6 systolic murmur to LLS border) Lungs: Clear Abdomen: Normal bowel sounds, Soft, No tenderness Extremities: No cyanosis, Other (2-3+ bilateral LE pitting edema) Skin: No breakdown, No significant lesion Labs LABS Laboratory Tests Test 03/04/18 05:00 White Blood Count 5.3 x10^3/uL (4.0-11.0) Red Blood Count 5.01 x10^6/uL (4.30-5.70) Hemoglobin 12.7 g/dL (13.0-17.5) Hematocrit 39.3 % (39.0-53.0) Mean Corpuscular Volume 78 fL (79-100) Mean Corpuscular Hemoglobin 25 pg (25-35) Mean Corpuscular Hemoglobin Concent 32 g/dL (31-37) Red Cell Distribution Width 17.4 % (11.5-14.5) Platelet Count 181 x10^3/uL (140-400) Neutrophils (%) (Auto) 60 % (31-73) Lymphocytes (%) (Auto) 28 % (24-48) Monocytes (%) (Auto) 10 % (0-9) Eosinophils (%) (Auto) 1 % (0-3) Basophils (%) (Auto) 1 % (0-3) Neutrophils # (Auto) 3.2 x10^3uL (1.8-7.7) Lymphocytes # (Auto) 1.5 x10^3/uL (1.0-4.8) Monocytes # (Auto) 0.5 x10^3/uL (0.0-1.1) Eosinophils # (Auto) 0.1 x10^3/uL (0.0-0.7) Basophils # (Auto) 0.0 x10^3/uL (0.0-0.2) Sodium Level 139 mmol/L (136-145) Potassium Level 4.6 mmol/L (3.5-5.1) Chloride Level 105 mmol/L (98-107) Carbon Dioxide Level 29 mmol/L (21-32) Anion Gap 5 (6-14) Blood Urea Nitrogen 15 mg/dL (8-26) Creatinine 1.2 mg/dL (0.7-1.3) Estimated GFR (Cockcroft-Gault) 75.0 BUN/Creatinine Ratio 13 (6-20) Glucose Level 92 mg/dL (70-99) Calcium Level 8.5 mg/dL (8.5-10.1) Total Bilirubin 0.5 mg/dL (0.2-1.0) Aspartate Amino Transf (AST/SGOT) 15 U/L (15-37) Alanine Aminotransferase (ALT/SGPT) 57 U/L (16-63) Alkaline Phosphatase 87 U/L (46-116) Total Protein 6.7 g/dL (6.4-8.2) Albumin 3.0 g/dL (3.4-5.0) Albumin/Globulin Ratio 0.8 (1.0-1.7) Assessment and Plan Assessmemt and Plan Problems Medical Problems: (1) Arrhythmia Status: Acute (2) Congestive heart failure Status: Acute (3) Dyspnea Status: Acute Comment Review of Relevant I have reviewed the following items tiffany (where applicable) has been applied. Labs Laboratory Tests Test 03/02/18 10:32 03/02/18 11:00 03/03/18 07:00 03/04/18 05:00 White Blood Count 5.4 x10^3/uL (4.0-11.0) 5.5 x10^3/uL (4.0-11.0) 5.3 x10^3/uL (4.0-11.0) Red Blood Count 5.20 x10^6/uL (4.30-5.70) 5.01 x10^6/uL (4.30-5.70) 5.01 x10^6/uL (4.30-5.70) Hemoglobin 13.4 g/dL (13.0-17.5) 12.7 g/dL (13.0-17.5) 12.7 g/dL (13.0-17.5) Hematocrit 40.8 % (39.0-53.0) 39.2 % (39.0-53.0) 39.3 % (39.0-53.0) Mean Corpuscular Volume 79 fL (79-100) 78 fL (79-100) 78 fL (79-100) Mean Corpuscular Hemoglobin 26 pg (25-35) 25 pg (25-35) 25 pg (25-35) Mean Corpuscular Hemoglobin Concent 33 g/dL (31-37) 32 g/dL (31-37) 32 g/dL (31-37) Red Cell Distribution Width 17.1 % (11.5-14.5) 17.3 % (11.5-14.5) 17.4 % (11.5-14.5) Platelet Count 193 x10^3/uL (140-400) 180 x10^3/uL (140-400) 181 x10^3/uL (140-400) Neutrophils (%) (Auto) 67 % (31-73) 63 % (31-73) 60 % (31-73) Lymphocytes (%) (Auto) 24 % (24-48) 26 % (24-48) 28 % (24-48) Monocytes (%) (Auto) 9 % (0-9) 10 % (0-9) 10 % (0-9) Eosinophils (%) (Auto) 0 % (0-3) 1 % (0-3) 1 % (0-3) Basophils (%) (Auto) 1 % (0-3) 0 % (0-3) 1 % (0-3) Neutrophils # (Auto) 3.6 x10^3uL (1.8-7.7) 3.4 x10^3uL (1.8-7.7) 3.2 x10^3uL (1.8-7.7) Lymphocytes # (Auto) 1.3 x10^3/uL (1.0-4.8) 1.4 x10^3/uL (1.0-4.8) 1.5 x10^3/uL (1.0-4.8) Monocytes # (Auto) 0.5 x10^3/uL (0.0-1.1) 0.6 x10^3/uL (0.0-1.1) 0.5 x10^3/uL (0.0-1.1) Eosinophils # (Auto) 0.0 x10^3/uL (0.0-0.7) 0.1 x10^3/uL (0.0-0.7) 0.1 x10^3/uL (0.0-0.7) Basophils # (Auto) 0.0 x10^3/uL (0.0-0.2) 0.0 x10^3/uL (0.0-0.2) 0.0 x10^3/uL (0.0-0.2) Prothrombin Time 13.7 SEC (11.7-14.0) Prothromb Time International Ratio 1.1 (0.8-1.1) D-Dimer (Anai) 0.51 ug/mlFEU (0.00-0.50) Sodium Level 138 mmol/L (136-145) 141 mmol/L (136-145) 139 mmol/L (136-145) Potassium Level 3.8 mmol/L (3.5-5.1) 4.0 mmol/L (3.5-5.1) 4.6 mmol/L (3.5-5.1) Chloride Level 105 mmol/L (98-107) 106 mmol/L (98-107) 105 mmol/L (98-107) Carbon Dioxide Level 26 mmol/L (21-32) 29 mmol/L (21-32) 29 mmol/L (21-32) Anion Gap 7 (6-14) 6 (6-14) 5 (6-14) Blood Urea Nitrogen 9 mg/dL (8-26) 11 mg/dL (8-26) 15 mg/dL (8-26) Creatinine 1.2 mg/dL (0.7-1.3) 1.3 mg/dL (0.7-1.3) 1.2 mg/dL (0.7-1.3) Estimated GFR (Cockcroft-Gault) 75.0 68.4 75.0 BUN/Creatinine Ratio 8 (6-20) 13 (6-20) Glucose Level 99 mg/dL (70-99) 94 mg/dL (70-99) 92 mg/dL (70-99) Calcium Level 8.5 mg/dL (8.5-10.1) 8.2 mg/dL (8.5-10.1) 8.5 mg/dL (8.5-10.1) Magnesium Level 2.0 mg/dL (1.8-2.4) 2.1 mg/dL (1.8-2.4) Total Bilirubin 0.6 mg/dL (0.2-1.0) 0.5 mg/dL (0.2-1.0) Aspartate Amino Transf (AST/SGOT) 33 U/L (15-37) 15 U/L (15-37) Alanine Aminotransferase (ALT/SGPT) 76 U/L (16-63) 57 U/L (16-63) Alkaline Phosphatase 99 U/L (46-116) 87 U/L (46-116) Creatine Kinase 80 U/L (39-308) Creatine Kinase MB (Mass) 0.8 ng/mL (0.0-3.6) Creatine Kinase MB Relative Index 1.0 % (0-4) Troponin I Quantitative 0.038 ng/mL (0.000-0.055) UM-Vxm-C-Type Natriuretic Peptide 2307 pg/mL (0-124) Total Protein 6.9 g/dL (6.4-8.2) 6.7 g/dL (6.4-8.2) Albumin 3.3 g/dL (3.4-5.0) 3.0 g/dL (3.4-5.0) Albumin/Globulin Ratio 0.9 (1.0-1.7) 0.8 (1.0-1.7) Triglycerides Level 64 mg/dL (0-150) Cholesterol Level 163 mg/dL (0-200) LDL Cholesterol, Calculated 83 mg/dL (0-100) VLDL Cholesterol, Calculated 13 mg/dL (0-40) Non-HDL Cholesterol Calculated 96 mg/dL (0-129) HDL Cholesterol 67 mg/dL (40-60) Cholesterol/HDL Ratio 2.4 Thyroid Stimulating Hormone (TSH) 1.238 uIU/mL (0.358-3.74) Free Thyroxine 1.24 ng/dL (0.76-1.46) Free Triiodothyronine (T3) pg/mL 2.58 pg/mL (2.18-3.98) Urine Collection Type Void Urine Color Yellow Urine Clarity Clear Urine pH 7.0 Urine Specific [place] 1.010 Urine Protein Negative mg/dL (NEG-TRACE) Urine Glucose (UA) Negative mg/dL (NEG) Urine Ketones (Stick) Negative mg/dL (NEG) Urine Blood Negative (NEG) Urine Nitrite Negative (NEG) Urine Bilirubin Negative (NEG) Urine Urobilinogen Dipstick 0.2 mg/dL (0.2 mg/dL) Urine Leukocyte Esterase Negative (NEG) Urine RBC 1-2 /HPF (0-2) Urine WBC Occ /HPF (0-4) Urine Squamous Epithelial Cells Occ /LPF Urine Bacteria 0 /HPF (0-FEW) Laboratory Tests Test 03/04/18 05:00 White Blood Count 5.3 x10^3/uL (4.0-11.0) Red Blood Count 5.01 x10^6/uL (4.30-5.70) Hemoglobin 12.7 g/dL (13.0-17.5) Hematocrit 39.3 % (39.0-53.0) Mean Corpuscular Volume 78 fL (79-100) Mean Corpuscular Hemoglobin 25 pg (25-35) Mean Corpuscular Hemoglobin Concent 32 g/dL (31-37) Red Cell Distribution Width 17.4 % (11.5-14.5) Platelet Count 181 x10^3/uL (140-400) Neutrophils (%) (Auto) 60 % (31-73) Lymphocytes (%) (Auto) 28 % (24-48) Monocytes (%) (Auto) 10 % (0-9) Eosinophils (%) (Auto) 1 % (0-3) Basophils (%) (Auto) 1 % (0-3) Neutrophils # (Auto) 3.2 x10^3uL (1.8-7.7) Lymphocytes # (Auto) 1.5 x10^3/uL (1.0-4.8) Monocytes # (Auto) 0.5 x10^3/uL (0.0-1.1) Eosinophils # (Auto) 0.1 x10^3/uL (0.0-0.7) Basophils # (Auto) 0.0 x10^3/uL (0.0-0.2) Sodium Level 139 mmol/L (136-145) Potassium Level 4.6 mmol/L (3.5-5.1) Chloride Level 105 mmol/L (98-107) Carbon Dioxide Level 29 mmol/L (21-32) Anion Gap 5 (6-14) Blood Urea Nitrogen 15 mg/dL (8-26) Creatinine 1.2 mg/dL (0.7-1.3) Estimated GFR (Cockcroft-Gault) 75.0 BUN/Creatinine Ratio 13 (6-20) Glucose Level 92 mg/dL (70-99) Calcium Level 8.5 mg/dL (8.5-10.1) Total Bilirubin 0.5 mg/dL (0.2-1.0) Aspartate Amino Transf (AST/SGOT) 15 U/L (15-37) Alanine Aminotransferase (ALT/SGPT) 57 U/L (16-63) Alkaline Phosphatase 87 U/L (46-116) Total Protein 6.7 g/dL (6.4-8.2) Albumin 3.0 g/dL (3.4-5.0) Albumin/Globulin Ratio 0.8 (1.0-1.7) Medications Current Medications Ondansetron HCl (Zofran) 4 mg PRN Q6HRS PRN IV NAUSEA/VOMITING 1ST CHOICE; Start 03/02/18 at 12:45 Prochlorperazine Edisylate (Compazine) 10 mg PRN Q6HRS PRN IV NAUSEA/VOMITING 2ND CHOICE; Start 03/02/18 at 12:45 Prochlorperazine (Compazine) 25 mg PRN Q12HR PRN OR NAUSEA/VOMITING; Start at 12:45 Al Hydroxide/Mg Hydroxide (Mylanta Plus Xs) 30 ml PRN Q3HRS PRN PO HEARTBURN / GAS; Start 03/02/18 at 12:45 Calcium Carbonate/ Glycine (Tums) 500 mg PRN Q3HRS PRN PO UPSET STOMACH; Start 03/02/18 at 12:45 Zolpidem Tartrate (Ambien) 5 mg PRN QHS PRN PO INSOMNIA, MAY REPEAT IN 1HR; Start 03/02/18 at 12:45 Oxycodone HCl (Roxicodone) 5 mg PRN Q3HRS PRN PO MODERATE-SEVERE PAIN; Start at 12:45 Morphine Sulfate (Morphine Sulfate) 1 mg PRN Q1HR PRN IV PAIN; Start 03/02/18 at 12:45 Acetaminophen (Tylenol) 650 mg PRN Q6HRS PRN PO Headaches, Temp > 101.5F; Start 03/02/18 at 12:45 Ibuprofen (Motrin) 400 mg PRN Q6HRS PRN PO MILD PAIN; Start 03/02/18 at 12:45 Docusate Sodium (Colace) 100 mg BID PO ; Start 03/02/18 at 21:00 Magnesium Hydroxide (Milk Of Magnesia) 2,400 mg PRN Q12HR PRN PO CONSTIPATION; Start 03/02/18 at 12:45 Bisacodyl (Dulcolax Supp) 10 mg PRN DAILY PRN OR CONSTIPATION; Start 03/02/18 at 12:45 Dronedarone (Multaq) 400 mg BID PO Last administered on 03/04/18at 08:56; Start 03/02/18 at 21:00 Furosemide (Lasix) 40 mg DAILY PO ; Start 03/03/18 at 09:00; Stop 03/03/18 at 09 :00; Status DC Hydrochlorothiazide (Microzide) 12.5 mg BID PO ; Start 03/02/18 at 21:00; Stop 03/02/18 at 21:00; Status DC Methimazole (Tapazole) 60 mg DAILY PO ; Start 03/03/18 at 09:00; Stop 03/03/18 at 09:00; Status DC Potassium Chloride (Klor-Con) 20 meq [id number] PO Last administered on at 09:31; Start 03/03/18 at 08:00 Non-Formulary Medication (Propranolol Hcl ) 120 mg BID PO ; Start 03/02/18 at 21 :00; Stop 03/02/18 at 21:00; Status DC Sacubitril/ Valsartan (Entresto 49 Mg-51 Mg) 1 tab BID PO Last administered on 03/04/18at 08:56; Start 03/02/18 at 21:00 Nicotine (Nicoderm Cq 21mg) 1 patch PRN DAILY PRN TD SMOKING CESSATION; Start 03/02/18 at 13:15 Furosemide (Lasix) 40 mg DAILY IVP Last administered on 03/03/18at 09:24; Start 03/02/18 at 13:15 Aspirin (Ecotrin) 81 mg [id number] PO Last administered on 03/04/18at 08:56; Start 03/03/18 at 08:00 Regadenoson (Lexiscan) 0.4 mg 1X ONCE IV ; Start 03/04/18 at 08:30; Stop at 08:31; Status DC Active Scripts Active Reported Hydralazine Hcl 10 Mg Tablet 1 Tab PO BID Furosemide 20 Mg Tablet 20 Mg PO DAILY Clopidogrel (Clopidogrel Bisulfate) 75 Mg Tablet 75 Mg PO DAILY Multaq (Dronedarone Hcl) 400 Mg Tablet 1 Tab PO BID Propranolol Hcl 80 Mg Cap.sa.24h 120 Mg PO BID Methimazole 10 Mg Tablet 60 Mg PO DAILY Hydrochlorothiazide Tablet (Hydrochlorothiazide) 12.5 Mg Tablet 10 Mg PO BID Entresto 49 mg-51 mg Tablet (Sacubitril/Valsartan) 1 Each Tablet 1 Each PO BID Potassium Chloride 20 Meq Tablet.er 20 Meq PO DAILY Last dose given: 9:00 a.m. Next dose due: 06-01-14 9:00 a.m. Furosemide 40 Mg Tablet 40 Mg PO DAILY Last dose given: 9:00 a.m. Next dose due: 06-01-14 9:00 a.m. Vitals/I & O Vital Sign - Last 24 Hours 03/03/18 03/03/18 03/03/18 03/03/18 09:23 09:24 11:00 15:38 Temp 97.8 98.3 97.8 98.3 Pulse 74 74 76 71 Resp 16 20 B/P (MAP) 139/93 139/93 136/86 (103) 106/77 (87) Pulse Ox 98 99 O2 Delivery Room Air Room Air 03/03/18 03/03/18 03/03/18 03/03/18 19:59 20:00 20:16 20:18 Temp 98.5 98.5 Pulse 77 77 Resp 18 B/P (MAP) 125/75 (92) 125/75 Pulse Ox 99 O2 Delivery Room Air Room Air Room Air 03/03/18 03/03/18 03/04/18 03/04/18 20:18 22:32 03:20 07:00 Temp 98.4 98.2 97.9 98.4 98.2 97.9 Pulse 77 65 62 67 Resp 16 16 18 B/P (MAP) 125/75 116/77 (90) 125/80 (95) 122/85 (97) Pulse Ox 100 99 98 O2 Delivery Room Air Room Air Room Air 03/04/18 03/04/18 08:56 08:56 Pulse 67 67 B/P (MAP) 122/85 122/85 Intake and Output 03/03/18 03/03/18 03/04/18 15:00 23:00 07:00 Intake Total 480 ml 200 ml Output Total 1050 ml Balance -570 ml 200 ml TONY FRANCISCO MD Mar 04, 2018 09:10
[2018-03-04] MEDS ORDERED: METOPROLOL SUCC 24HR ER 25 MG TAB.ER.24H. PO ONE (11:45)
--- NOTE | 2018-03-04 11:45 | PDOC ---
JANA MILLER PLASTIC AND RECONSTRUCTIVE SURGEON 03/04/18 1145: CARDIO Progress Notes Date and Time Date of Service 03/04/2018 Time of Evaluation 1100 Subjective Subjective: No Chest Pain, No shortness of breath, No Palpitations Vitals Vitals Vital Signs Date Time Temp Pulse Resp B/P (MAP) Pulse Ox O2 Delivery O2 Flow Rate FiO2 03/04/18 08:56 67 122/85 03/04/18 08:00 Room Air 03/04/18 07:00 97.9 18 98 97.9 Weight Weight [ ] Input and Output Intake and Output Intake and Output 03/04/18 07:00 Intake Total 680 ml Output Total 1050 ml Balance -370 ml Intake Oral 680 ml Output Urine Total 1050 ml # Voids 2 Laboratory Labs Laboratory Tests Test 03/04/18 05:00 White Blood Count 5.3 x10^3/uL (4.0-11.0) Red Blood Count 5.01 x10^6/uL (4.30-5.70) Hemoglobin 12.7 g/dL (13.0-17.5) Hematocrit 39.3 % (39.0-53.0) Mean Corpuscular Volume 78 fL (79-100) Mean Corpuscular Hemoglobin 25 pg (25-35) Mean Corpuscular Hemoglobin Concent 32 g/dL (31-37) Red Cell Distribution Width 17.4 % (11.5-14.5) Platelet Count 181 x10^3/uL (140-400) Neutrophils (%) (Auto) 60 % (31-73) Lymphocytes (%) (Auto) 28 % (24-48) Monocytes (%) (Auto) 10 % (0-9) Eosinophils (%) (Auto) 1 % (0-3) Basophils (%) (Auto) 1 % (0-3) Neutrophils # (Auto) 3.2 x10^3uL (1.8-7.7) Lymphocytes # (Auto) 1.5 x10^3/uL (1.0-4.8) Monocytes # (Auto) 0.5 x10^3/uL (0.0-1.1) Eosinophils # (Auto) 0.1 x10^3/uL (0.0-0.7) Basophils # (Auto) 0.0 x10^3/uL (0.0-0.2) Sodium Level 139 mmol/L (136-145) Potassium Level 4.6 mmol/L (3.5-5.1) Chloride Level 105 mmol/L (98-107) Carbon Dioxide Level 29 mmol/L (21-32) Anion Gap 5 (6-14) Blood Urea Nitrogen 15 mg/dL (8-26) Creatinine 1.2 mg/dL (0.7-1.3) Estimated GFR (Cockcroft-Gault) 75.0 BUN/Creatinine Ratio 13 (6-20) Glucose Level 92 mg/dL (70-99) Calcium Level 8.5 mg/dL (8.5-10.1) Total Bilirubin 0.5 mg/dL (0.2-1.0) Aspartate Amino Transf (AST/SGOT) 15 U/L (15-37) Alanine Aminotransferase (ALT/SGPT) 57 U/L (16-63) Alkaline Phosphatase 87 U/L (46-116) Total Protein 6.7 g/dL (6.4-8.2) Albumin 3.0 g/dL (3.4-5.0) Albumin/Globulin Ratio 0.8 (1.0-1.7) Physical Exam HEENT: Neck Supple W Full Motion Chest: Symmetric LUNGS: Other (faint expiratory wheeze) Heart: S1S2, RRR (SR with occasional PVCs) Abdomen: Soft N/T Extremities: No Calf Tenderness, Other (2+ bilateral LE pitting edema) Neurology: alert, oriented, follow commands Assessment Assessment 1. Acute on chronic systolic CHF: compensated 2. Hx of Vfib: Vfib episode 02/18/2018 which spontaneously resolved before treatment delivery. 3. NICM: last [facility] 2008. EF remains at 25%. Thoracic impedance suggest fluid overload. 4. AICD in situ: [place] [employer] failed download for about 2 weeks as he has been sleeping away from transmitter. 5. HTN: controlled 6. PAFIB: Intolerance to amiodarone in the past. Maintaining SR 7. HLP: on lipitor 8. Hx of hyperthyroidism: likely primary. Was on propranolol and tapazole in the past which he is not on anymore. 9. HX of TIA: on plavix 10. Arrhythmias: noted with PMTs rate related. Baseline rate changed to 60 from 40. Overnight noted with brief PSVT, PVCs, and Slow VT with intermittent pacing. 11. Continued tobaccoism with possible COPD Recommendations 1. Extra lasix today then change to PO. 2. Continue entresto, lipitor. ASA. Continue Multaq. Start low dose toprol. 3. MPI today and rule out ischemic etiology 4. Reinforced home BP monitoring, diet and FR compliance and daily wt. 5. Noted with past hx of RAKESH but no documented use of CPAP. May need to revisit. 6. Pending MPI result EP referral is a consideration 7. Smoking cessation EDWIN HAIRSTON MD 03/05/18 0730: CARDIO Progress Notes Assessment Assessment Patient seen and examined 03/04/18. Agree with AIRCRAFT TOOL MAKER's assessment and plan. Acute on chronic systolic heart failure better compensated. Lexiscan nuclear stress test results reviewed. Plan for cardiac catheterization for definitive evaluation. Risks and benefits were explained and he is agreeable. JANA MILLER APRN Mar 04, 2018 11:45 EDWIN HAIRSTON MD Mar 05, 2018 07:30
[2018-03-04] MEDS: POTASSIUM CHLORIDE 20 MEQ TABLET.ER. PO SCH (12:32)
[2018-03-04] MEDS: FUROSEMIDE 40 MG/4 ML VIAL. IVP SCH (12:33)
[2018-03-04] MEDS ORDERED: FUROSEMIDE 40 MG/4 ML VIAL. IVP ONE (14:00)
[2018-03-04 15:00] VITALS: BP 112/66
--- NOTE | 2018-03-04 15:07 | RAD ---
MR#: [id number] Date of Study: 03/04/2018 Ordering Physician: JANA MILLER, Referring Physician: BILL FLORES Tech: JUSTUS Huggins ARRT (R) (N) APPROVED REPORT Test Type: Pharmacological Stress Nurse/Tech: Kelsie De La Cruz RN Test Indications: cardiomyopathy Cardiac History: High cholesterol, High cholesterol Medications: Hx of CAD, PACEMAKER, Current smoker, CHF, Dyspnea, See Electronic Medical Record Medical History: See Electronic Medical Record Resting Heart Rate: 68 bpm Resting Blood Pressure: 126/76mmHg Pretest Chest Pain: No chest pain Nurse/Tech Notes S1S2, Clear LS Consent: The procedure was explained to the patient in lay terms. Informed consent was witnessed. Blanco eout was entered into [employer] History and Stress Test performed by Kelsie De La Curz RN Pharm. Details Pharmacologic stress testing was performed using 0.4mg per 5ml of regadenoson given intravenously ove r 7-10 seconds. Stress Symptoms Flushing POST EXERCISE Reason for Termination: Infusion complete Max HR: 126 bpm Max Blood Pressure: 141/84mmHg Chest Pain: No. INTERPRETATION Stress EKG Conclusion: The resting EKG shows V paced beats with episodes of sinus rhythm and nonspeci fic ST segment changes. The stress EKG shows no significant changes from baseline. No EKG evidence of stress-induced ischemia. Imaging Protocol IMAGE PROTOCOL: Rest Tc-99m/stress Tc-99m 1 day Rest: Stress: Viability: Radiopharm.Tc99m WzqgydwthTr48c Sestamibi Unre84oBq 33mCi Img Date 03/04/2018 03/04/2018 Inj-Img Xtvl12fnx. 180min. Rest Admin Site:IV - Left ForearmAdministrator:JUSTUS Huggins ARRT (R)(N) Stress Admin Site: IV - Left ForearmAdministrator: GITA Cruz STRESS DATA End Diast. Vol.302.0mlLVEDV index ZNW524.0ml End Syst. Vol.217.0mlLVESV index BSA93.0ml Myocardial Yecs139.0gEject. Hhjvvtvv92.0% Stress Scores Regional WT3.00Summed WT44.00 Regional WM1.00Summed WM32.00 LV Perfusion The stress scans show an anterior apical and distal inferior defect. The rest scans show an anterior apical and distal inferior defect. Nuclear imaging shows a infarct in the anterior apical and distal inferior regions with mild korey-inf arct reversibility. No separate areas of reversible ischemia are present Wall Motion Left ventricular systolic function is globally decreased with the most severe decrease in the apex. E jection fraction is 28%. LV Perf. Quant 17 Seg. SSS16.00 17 Seg. SRS23.00 17 Seg. SDS0.00 Stress Defect Extent (% LAD)46.30Rest Defect Extent (% LAD)56.90Rev. Defect Extent (% LAD)0.00 Stress Defect Extent (% LCX) 37.50Rest Defect Extent (% LCX)58.80Rev. Defect Extent (% LCX)2.50 Stress Defect Extent (% RCA)4.40Rest Defect Extent (% RCA)42.20Rev. Defect Extent (% RCA)0.00 Stress Defect Extent (% ONDINA)27.00Rest Defect Extent (% ONDINA)53.90Rev. Defect Extent (% ONDINA)0.40 Conclusion 1. No EKG evidence of stressed induced ischemia. 2. Nuclear imaging shows an infarct in the anterior apical and distal inferior atkinson. 3. Mild korey-infarction reversible ischemia is present but no separate areas of reversible ischemia. 4. Significantly decreased ejection fraction at 28%. 5. Moderate risk study most significant for a prior extensive infarct and an ejection fraction of 28 %. Signed by : Dean Chau MD Electronically Approved : 03/04/2018 15:06:46
[2018-03-04 19:40] VITALS: BP 140/84
[2018-03-04 22:38] VITALS: BP 137/93
[2018-03-05] VITALS (11 sets, daily range): BP systolic 112–140; BP diastolic 69–95
[2018-03-05] MEDS ORDERED: LIDOCAINE 1% PF 2 ML VIAL. ONE (06:12)
[2018-03-05] MEDS ORDERED: IODIXANOL 320 MG/ML 100 ML VIAL. ONE (06:12)
[2018-03-05] MEDS ORDERED: fentaNYL PF VIAL 100 MCG/2 ML VIAL ONE (06:54)
[2018-03-05] MEDS ORDERED: MIDAZOLAM HCL/PF 2 MG/2 ML VIAL. ONE (06:54)
[2018-03-05] MEDS ORDERED: HEPARIN for IV BOLUS 10,000 UNIT/10 ML VIAL. ONE (06:54)
[2018-03-05] MEDS ORDERED: VERAPAMIL 5 MG/2 ML VIAL. ONE (06:54)
[2018-03-05] MEDS ORDERED: NITROGLYCERIN 200 MCG/2 ML SYRINGE FOR CATH/VASC LAB. ONE (06:55)
[2018-03-05] MEDS ORDERED: fentaNYL PF VIAL 100 MCG/2 ML VIAL IV ONE (07:15)
[2018-03-05] MEDS ORDERED: IODIXANOL 320 MG/ML 100 ML VIAL. IART ONE (07:15)
[2018-03-05] MEDS ORDERED: VERAPAMIL 5 MG/2 ML VIAL. IART ONE (07:15)
[2018-03-05] MEDS ORDERED: MIDAZOLAM HCL/PF 2 MG/2 ML VIAL. IV ONE (07:15)
[2018-03-05] MEDS ORDERED: NITROGLYCERIN 200 MCG/2 ML SYRINGE FOR CATH/VASC LAB. IART ONE (07:15)
[2018-03-05] MEDS ORDERED: LIDOCAINE 1% PF 2 ML VIAL. INJ ONE (07:15)
[2018-03-05] MEDS ORDERED: HEPARIN for IV BOLUS 10,000 UNIT/10 ML VIAL. IART ONE (07:15)
[2018-03-05] MEDS ORDERED: IV 1/2 NORMAL SALINE 1,000 ML IV SCH (07:27)
--- NOTE | 2018-03-05 07:27 | PDOC ---
MODERATE SEDATION ASSESSMENT RISKS/ALTERNATIVES Risks/Alternatives Risks and alternatives of this type of sedation and procedure discussed with: RISK/ALTERNATIVES: Patient H & P ON CHART H & P H & P on chart and reviewed for co-morbid conditions and appropriate labs. H&P ON CHART: Yes STATUS PREG STATUS ASSESSED: N/A MEDS/ALLERGIES REVIEWED Meds/Allergies Reviewed Medications and Allergies including time and route of recently administered narcotics and sedatives. MEDS/ALLERGIES REVIEWED: Yes ASA RATING ASA RATING: III AIRWAY ASSESSMENT Airway Assessment Airway patency, oral function limitations, presence of caps, crowns, dentures, partials, and ability to extend neck assessed. AIRWAY ASSESSMENT: Yes MALLAMPATI SCORE MALLAMPATI SCORE: II PRE-SEDATION ASSESSMENT PRE-SEDATION ASSESSMENT: Yes EDWIN HAIRSTON MD Mar 05, 2018 07:27
[2018-03-05] MEDS ORDERED: NITROGLYCERIN SUBLINGUAL 0.4 MG BOTTLE OF 25. SL PRN (07:30)
[2018-03-05] MEDS ORDERED: CONTRAST GIVEN. MC PRN (07:30)
--- NOTE | 2018-03-05 07:51 | CARD ---
MR#: [id number] Date of Study: 03/05/2018 Ordering Physician: EDWIN BLANCA, Referring Physician: BHUPINDER SHULTZ Tech: RT Susan (R) APPROVED REPORT Technologist: RT Susan (R) Nurse: Kriss Iverson R.N. Procedure(s) performed: Left heart catheterization, selective coronary angiography and left ventricul ography via right transradial approach Moderate sedation: 25 min INDICATION The indication(s) include : Ventricular fibrillation, acute on chronic systolic heart failure, abnorm al stress test. PROCEDURE NARRATIVE After explaining the risks, benefits and alternative options, informed consent was obtained from fercho ent. Patient was brought to the cardiac Devil Dog and right wrist was prepped and draped in the usual fashion after confirming a positive modified Justus's test. Arterial access was obtained in the righ t radial artery and a 6 Vietnamese sheath was inserted. 6 Vietnamese Mihir catheter was used to perform don ective angiography of the left and right coronary arteries. 6 Vietnamese pigtail catheter was used to pe rform left ventriculography. Patient tolerated the procedure well. Hemostasis was achieved using TR band. There were no immediate complications. The following findings were noted. FINDINGS 1. Hemodynamics: Left ventricular end-diastolic pressure of 23 mmHg. No pullback gradient across th e aortic valve. 2. Left ventriculography: Severe left ventricle systolic dysfunction with ejection fraction estimate d at 20%. No significant mitral regurgitation seen. 3. Coronary angiography: a. The left main coronary artery arose from the left sinus of Valsalva, gave rise to the left anteri or descending and left circumflex arteries and did not show any significant stenosis. b. The left anterior descending artery did not show any significant stenosis. c. The left circumflex artery did not show any significant stenosis. d. The right coronary artery was a large and dominant vessel arising from the right sinus of Valsalv a that did not show any significant stenosis. Conclusion 1. No significant coronary artery disease 2. Severe left ventricle systolic dysfunction with ejection fraction estimated at 20% Recommendations Medical Therapy Signed by : Edwin Blanca, Electronically Approved : 03/05/2018 07:50:21
[2018-03-05] MEDS: ASPIRIN ENTERIC COATED 81 MG TABLET.DR. PO SCH (08:39)
[2018-03-05] MEDS: DRONEDARONE HCL 400 MG TABLET PO SCH (08:39)
[2018-03-05] MEDS: SACUBITRIL/VALSARTAN 49/51MG TABLET. PO SCH (08:40)
[2018-03-05] MEDS: POTASSIUM CHLORIDE 20 MEQ TABLET.ER. PO SCH (08:48)
[2018-03-05] MEDS ORDERED: METOPROLOL SUCC 24HR ER 25 MG TAB.ER.24H. PO SCH (09:00)
[2018-03-05] MEDS ORDERED: FUROSEMIDE 40 MG TABLET. PO SCH (09:00)
[2018-03-05] MEDS ORDERED: METO-269 PO (10:31)
[2018-03-05] MEDS ORDERED: SACU1TAB7 PO (10:31)
[2018-03-05] MEDS ORDERED: CLOP75TA PO (10:31)
== END 2018-03-05 13:15 | disposition home or self-care (01) | DRG 286 ==
LOC: ER 10:00 → 2 NORTH 12:30
PROVIDERS: ADMIT Internal Medicine; ATTEND Internal Medicine
PROC: 4A023N7 Measurement of Cardiac Sampling and Pressure, Left Heart, Percutaneous Approach (ICD-10-PCS; principal; 2018-03-05)
PROC: B2111ZZ Fluoroscopy of Multiple Coronary Arteries using Low Osmolar Contrast (ICD-10-PCS; 2018-03-05)
PROC: B2151ZZ Fluoroscopy of Left Heart using Low Osmolar Contrast (ICD-10-PCS; 2018-03-05)
DX: I11.0 Hypertensive heart disease with heart failure (principal); I49.01 Ventricular fibrillation; I47.2 Ventricular tachycardia; I50.23 Acute on chronic systolic (congestive) heart failure; I42.9 Cardiomyopathy, unspecified; E66.9 Obesity, unspecified; E78.5 Hyperlipidemia, unspecified; F17.210 Nicotine dependence, cigarettes, uncomplicated; G47.33 Obstructive sleep apnea (adult) (pediatric); I25.10 Atherosclerotic heart disease of native coronary artery without angina pectoris; Z96.649 Presence of unspecified artificial hip joint; E05.90 Thyrotoxicosis, unspecified without thyrotoxic crisis or storm; F41.9 Anxiety disorder, unspecified; M19.90 Unspecified osteoarthritis, unspecified site; I48.0 Paroxysmal atrial fibrillation; I49.3 Ventricular premature depolarization; K21.9 Gastro-esophageal reflux disease without esophagitis; Z82.49 Family history of ischemic heart disease and other diseases of the circulatory system; Z86.711 Personal history of pulmonary embolism; Z86.73 Personal history of transient ischemic attack (TIA), and cerebral infarction without residual deficits; Z95.810 Presence of automatic (implantable) cardiac defibrillator; Z86.74 Personal history of sudden cardiac arrest; Z90.49 Acquired absence of other specified parts of digestive tract; Z79.899 Other long term (current) drug therapy; Z68.31 Body mass index [BMI] 31.0-31.9, adult
CPT/HCPCS: 36415; 78452; 80048; 80053; 80061; 81001; 82553; 83735; 83880; 84439; 84443; 84481; 84484; 85025; 85379; 85610; 93005; 93017; 93306; 93458; 96374; 96375; 96376; 99152; 99153; A9500; C1769; C1892; J1644; J1940; J2250; J2785; J3010; J3490; 99285-25

== ENCOUNTER → 2018-03-15 | Outpatient (CLI) | payer OTHER ==
[2018-03-05 11:00] VITALS: BP 138/79
[~2018-03-15] MED LIST changes: +FURO20TA3 PO; +HYDR-2867 PO; +METO-269 PO
--- NOTE | 2018-03-15 15:42 | CARD ---
MR#: [id number] Date of Study: 03/15/2018 Ordering Physician: EDWIN HAIRSTON, Referring Physician: EDWIN HAIRSTON Tech: Chantelle Baker RDCS APPROVED REPORT EXAM: Two-dimensional and M-mode echocardiogram with Doppler and color Doppler. Other Information Quality : Good INDICATION Congestive Heart Failure Surgery/Intervention ICD/Pacemaker: 2D DIMENSIONS RVDd3.1 (2.9-3.5cm)Left Atrium(2D)5.2 (1.6-4.0cm) IVSd1.5 (0.7-1.1cm)Aortic Root(2D)3.3 (2.0-3.7cm) LVDd6.4 (3.9-5.9cm)LVOT Diameter2.4 (1.8-2.4cm) PWd1.6 (0.7-1.1cm)LVDs5.0 (2.5-4.0cm) FS (%) 21.4 %SV87.8 ml LVEF(%)40.0 (>50%) Aortic Valve AoV Peak Joshua.118.4cm/sAoV VTI20.5cm AO Peak GR.5.6mmHgLVOT VTI 12.69cm AO Mean GR.3mmHgAVA (VTI)2.80cm2 Mitral Valve MV E Qnnzfsus52.6cm/sMV DECEL JSJV781nb MV A Mtitfmmn04.0cm/sE/A Ratio1.9 TDI Lateral E' P. V8.50cm/sMedial E' P. V4.96cm/s E/Lateral E'10.7E/Medial E'18.3 Tricuspid Valve TR P. Qmbanllj342db/sRAP KXMKRNMV7vfVx TR Peak Gr.22vaIqHQIQ88pbNs Pulmonary Vein S1 Ntzdhnio74.8cm/sS2 Xuzyaeko92.31cm/s D2 Jmwqlcfm42.3cm/s LEFT VENTRICLE The Left Ventricle is mildly dilated. There is mild concentric left ventricular hypertrophy. Left gus tricular systolic function is moderately decreased. The Ejection Fraction is 35-40%. There is moderat e global hypokinesis of the left ventricle. Transmitral Doppler flow pattern is restrictive diastolic dysfunction. RIGHT VENTRICLE The right ventricle is mildly dilated. The right ventricular systolic function is normal. There is a device lead in the right ventricle. ATRIA The left atrium is moderately dilated. The right atrium is mildly dilated. Device leads are seen in t he right atrium and ventricle. The interatrial septum is intact with no evidence for an atrial septal defect or patent foramen ovale as noted on 2-D or Doppler imaging. AORTIC VALVE The aortic valve is calcified but opens well. Doppler and Color Flow revealed no significant aortic r egurgitation. There is no significant aortic valvular stenosis. MITRAL VALVE The mitral valve is calcified but opens well. There is no evidence of mitral valve prolapse. There is no mitral valve stenosis. Doppler and Color-flow revealed trace to mild mitral regurgitation. TRICUSPID VALVE The tricuspid valve is normal in structure and function. Doppler and Color Flow revealed mild tricusp id regurgitation. There is mild pulmonary hypertension. The PA pressure was estimated at 38 mmHg. The re is no tricuspid valve stenosis. PULMONIC VALVE The pulmonary valve is normal in structure and function. Doppler and Color Flow revealed mild pulmoni c valvular regurgitation. There is no pulmonic valvular stenosis. GREAT VESSELS The aortic root is normal in size. The ascending aorta is normal in size. The IVC is normal in size a nd collapses >50% with inspiration. PERICARDIAL EFFUSION There is no evidence of significant pericardial effusion. Critical Notification Critical Value: No <Conclusion> The Left Ventricle is mildly dilated. Left ventricular systolic function is moderately decreased. The Ejection Fraction is 35-40%. There is moderate global hypokinesis of the left ventricle. There is mild concentric left ventricular hypertrophy. Device leads are seen in the right atrium and ventricle. There is no significant aortic valvular stenosis. Doppler and Color Flow revealed no significant aortic regurgitation. Doppler and Color-flow revealed trace to mild mitral regurgitation. Doppler and Color Flow revealed mild tricuspid regurgitation. There is mild pulmonary hypertension. The PA pressure was estimated at 38 mmHg. Signed by : Dean Chau MD Electronically Approved : 03/15/2018 15:41:15
== END | disposition home or self-care (01) ==
LOC: ECHO 13:41
PROVIDERS: ATTEND Internal Medicine Cardiovascular Disease
DX: I08.8 Other rheumatic multiple valve diseases (principal); I11.0 Hypertensive heart disease with heart failure; I50.22 Chronic systolic (congestive) heart failure; I27.20 Pulmonary hypertension, unspecified; I48.0 Paroxysmal atrial fibrillation; K21.9 Gastro-esophageal reflux disease without esophagitis; I25.10 Atherosclerotic heart disease of native coronary artery without angina pectoris; Z95.0 Presence of cardiac pacemaker; Z86.73 Personal history of transient ischemic attack (TIA), and cerebral infarction without residual deficits; Z86.711 Personal history of pulmonary embolism; Z90.49 Acquired absence of other specified parts of digestive tract; Z82.49 Family history of ischemic heart disease and other diseases of the circulatory system
CPT/HCPCS: 93306